=== PATIENT | female | born 1960 | race Caucasian/White ===

== ENCOUNTER 2018-06-02 19:01 | Emergency (ER) | payer OTHER, SELFPAY ==
[2018-06-02 19:06] VITALS: BP 141/85; PULSE 88; RESP 16; TEMP 36.5; O2SAT 97
--- NOTE | 2018-06-02 19:21 | NUR.NOTE ---
Nursing Note: cervical collar applied without difficulty
[2018-06-02] MEDS: Ibuprofen 600 MG TAB PO (19:34)
[2018-06-02] MEDS: Acetaminophen 500 MG TAB 1000 MG PO (19:35)
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
[2018-06-02] MEDS: Cyclobenzaprine 10 MG TAB 20 MG PO (21:14)
== END 2018-06-02 21:14 | disposition home or self-care (01) ==
PROVIDERS: Emergency Provider Nurse Practitioner Family; PCP Nurse Practitioner
DX: S13.4XXA Sprain of ligaments of cervical spine, initial encounter (principal); S29.012A Strain of muscle and tendon of back wall of thorax, initial encounter; V43.52XA Car driver injured in collision with other type car in traffic accident, initial encounter
CPT/HCPCS: 99284; 72040; 72072; L0120; L0172

== ENCOUNTER 2019-01-09 02:38 | Emergency (ER) | payer OTHER, SELFPAY ==
[2019-01-09 02:41] VITALS: BP 125/92; PULSE 95; RESP 16; TEMP 36.8; O2SAT 99
--- NOTE | 2019-01-09 02:44 | ED.GENADUL_ITS ---
Discharge Plan Disposition Patient Disposition: HOME Condition: Good Discharge Details Chief Complaint: EyeProblem Clinical Impression: Abrasion, corneal, Anisocoria Primary Care Provider: Marisa Interiano ED Provider: Trenton Tapia Meds and New Rx's Prescriptions: New erythromycin 5 mg/gram (0.5 %) ointment 0.5 inch OP QID Qty: 3.5 RF: 0 Continued baclofen 10 mg tablet 10 mg PO BID PRN (Reason: muscle spasm) Qty: 90 RF: 3 ibuprofen 800 mg tablet 800 mg PO TID PRN (Reason: fever or pain) Qty: 270 RF: 3 omeprazole 40 mg capsule,delayed release(DR/EC) 40 mg PO BID Qty: 180 RF: 3 rizatriptan 5 mg tablet 5 mg PO PRN Qty: 30 RF: 3 Discharge Instructions Instructions: Corneal Abrasion (ED) Additional Instructions: Do not wear your contact in the right eye. Antibiotic ointment as directed. Follow up with [facility] today. Return to ED for worsening eye pain, change in vision, vomiting, neurologic changes. Referrals: [facility] [Outside] Medical Decision Making Patient presents with complaint of right eye pain and discomfort. She has removed her contact lens but continues to have pain. She does not feel that her uncorrected vision in the right eye is any worse than what she would expect. She has significant anisocoria with the right pupil being much larger than the left. Her eye pain went away completely with tetracaine drops. Fluorescein staining and slit lamp exam does reveal corneal abrasion. Her pupils are reactive though the larger right pupil is more sluggish. There is consensual response. Pupils also constrict to accommodation. She has not used any medications upstairs that would have anticholinergic type effects. She has not given any DuoNeb treatments. She has not used scopolamine patch. She has not had anisocoria before. I do not suspect glaucoma as her eye pain should not have resolved with tetracaine, there is no injection of the conjunctiva or sclera, the pupil is reactive. She is otherwise neurologically intact and there is no diplopia, extraocular muscle dysfunction, ptosis. Does not seem that corneal abrasion would be enough ocular trauma to cause the issue. I think she needs urgent ophthalmologic evaluation but not emergent tonight. Starting her on erythromycin ointment for the corneal abrasion and referring her to [place] in the morning seems appropriate. If she develops worsening eye pain, change in vision, neurologic changes, other concerns return to ED. HPI General Mode of arrival: ambulatory . Date/Time Provider Initiated Documentation: 01/09/19 02:44 . Limitations to Documentation: no limitations . Information obtained by: patient and RN notes reviewed . HPI Narrative: Patient presents to ED with complaint of right eye pain. 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 She put her contacts in when leaving home to come to work. She had no issues during the drive to speak of. Once here at the hospital she developed right eye pain and discomfort. She removed the contact lens but continued to have pain and discomfort. She reports some redness earlier. She has had corneal abrasions before. She has not noticed a significant change in her vision more so than usual if she did not have her contact in. She does have history of headaches and does have one currently though not significantly different than previous. She has no neurological symptoms. She does not have history of glaucoma. She has not been ill otherwise. There is no direct trauma to the eye. Related Data Home Medications Medication Instructions Recorded Confirmed baclofen 10 mg tablet 10 mg PO BID PRN #90 tab 01/01/19 01/09/19 ibuprofen 800 mg tablet 800 mg PO TID PRN #270 tab-cap 01/01/19 01/09/19 omeprazole 40 mg capsule,delayed 40 mg PO BID #180 tab-cap 01/01/19 01/09/19 release rizatriptan 5 mg tablet 5 mg PO PRN #30 tab-cap 01/01/19 01/09/19 erythromycin 0.5 inch OP QID #3.5 gm 01/09/19 Previous Rx's Medication Instructions Recorded baclofen 10 mg tablet 10 mg PO BID PRN #90 tab 01/01/19 ibuprofen 800 mg tablet 800 mg PO TID PRN #270 tab-cap 01/01/19 omeprazole 40 mg capsule,delayed 40 mg PO BID #180 tab-cap 01/01/19 release rizatriptan 5 mg tablet 5 mg PO PRN #30 tab-cap 01/01/19 erythromycin 0.5 inch OP QID #3.5 gm 01/09/19 Allergies Allergy/AdvReac Type Severity Reaction Status Date / Time codeine Allergy Intermediate HIVES Verified 01/09/19 02:45 oxycodone HCl [From Tylox] Allergy Intermediate HIVES Verified 01/09/19 02:45 promethazine HCl Allergy Intermediate BIZARRE Verified 01/09/19 02:45 [From Phenergan] BEHAVIOR erythromycin base AdvReac Intermediate ABDOMINAL Verified 01/09/19 02:45 PAIN, VOMITING topiramate AdvReac Intermediate dizzy Verified 01/09/19 02:45 General LUIS DANIEL: 3 Review of Systems Constitutional Constitutional: Reports headache(s) and Denies weakness Eyes Eyes: Denies change in vision, Denies diplopia, Denies eye discharge, Denies loss of vision, Reports eye pain, Denies seeing flashes and Denies photophobia ENT Ears, Nose, Mouth, and Throat: Denies vertigo, Denies dizziness, Reports headache(s) and Denies disequilibrium Gastrointestinal Gastrointestinal: Denies nausea and Denies vomiting Musculoskeletal Musculoskeletal: Denies abnormal gait Neurologic Neurologic: Denies abnormal speech, Denies abnormal gait, Denies vertigo, Denies dizziness, Reports headache(s), Denies focal weakness, Denies loss of vision, Denies other visual disturbances, Denies disequilibrium and Denies weakness [facility] Medical History Arthritis (Inactive 11/10/16) Back pain (Acute) Obesity (Chronic) Routine gynecological examination (Inactive 03/11/13) Surgical History section X 3 Laryngoscopy, Tumor Excision (02/13/17) [facility] Ligation of fallopian tube Social History Smoking/Tobacco Use Status: Never Alcohol Intake: current Alcohol Intake frequency: holidays/special occasions only Drug use: Never Substance use type: does not use Household members: spouse and children Number of Children: 3 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 Working smoke detector in home: Yes Carbon monox detector in home: Yes Do you feel safe in your relationship?: Yes Exam Const General: cooperative, comfortable and no acute distress Orientation: alert and oriented x3 HENMT Head: normocephalic and atraumatic Face and sinus: normal facial exam Eyes Visual Cannon: normal visual cannon by confrontation Alignment and Position: alignment abnormal Periorbital: periorbital findings normal Eyelids: eyelids normal Conjunctivae: conjunctivae normal Sclera: sclerae normal Cornea: corneas abnormal on the right fluorescein used and abrasion; without dendrites present and without edema Pupils: anisocoria (Pupil react to light and accommodation right pupil slower and less reactive) right pupil size greater than left EOM: EOM intact bilaterally Direct ophthalmoscopy: anterior chamber normal and photophobia not present Neuro General: alert, oriented x3, gait normal, no focal motor deficits and CN's II-XI intact bilaterally Cranial Nerves: EOM intact bilaterally Cognition: normal cognition Speech: speech normal Gait: normal gait Sensory Exam: no sensory deficits noted
[2019-01-09] MEDS: Erythromycin Ophth Oint 3.5 GM TUBE OP (03:27)
== END 2019-01-09 03:35 | disposition home or self-care (01) ==
PROVIDERS: Emergency Provider Emergency Medicine; PCP Nurse Practitioner
DX: S05.01XA Injury of conjunctiva and corneal abrasion without foreign body, right eye, initial encounter (principal); H57.02 Anisocoria; X58.XXXA Exposure to other specified factors, initial encounter
CPT/HCPCS: 99283

== ENCOUNTER 2019-05-26 11:00 | Outpatient (CLI) | payer OTHER, SELFPAY ==
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
--- NOTE | 2019-05-26 11:15 | DI.RAD_ITS ---
EXAM: XR HIP LT COMPLETE AP PELVIS CLINICAL HISTORY: LT HIP PAIN, M25.552 TECHNIQUE: COMPARISON: No exams were available for comparison FINDINGS: Two views were obtained. There are mild degenerative changes of both hips and SI joints with fairly well preserved cartilaginous joint spaces of both hips no other significant bony or soft tissue abnor mality seen. IMPRESSION:
[2019-05-26 11:22] LABS: HCT 39.1 % (36.0-46.0); HGB 12.9 g/dL (12.0-15.5); Mean Corpuscular Hemoglobin 27.3 pg (27.0-33.0); Mean Corpuscular Volume 82.8 fL (80-95); Platelet Count 285 x1000/uL (130-400); RBC 4.72 m/cumm (4.00-5.20); RBC Distribution Width 14.6 % (11.7-14.6); White Blood Cell Count 4.59 k/cumm (4.4-10.8)
[2019-05-26 12:25] LABS: ALT 45 U/L (14-59); AST 25 U/L (15-37); Alkaline Phosphatase 72 U/L (46-116); Anion Gap 9.1 mmol/L (3-11); BUN 14 mg/dL (7-18); Bilirubin, Total 0.4 mg/dL (0.2-1.0); CO2 26.9 mmol/L (21.0-32.0); CREATININE 0.84 mg/dL (0.55-1.02); Calculated LDL 124 mg/dL (<100); Chloride 108 mmol/L (98-107); Cholesterol 194 mg/dL (<200); Glucose 93 mg/dL (74-106); HDL Cholesterol 38 mg/dL (40-60); Potassium 4.5 mmol/L (3.5-5.1); Sodium 144 mmol/L (136-145); Total Protein 6.9 g/dL (6.4-8.2); Triglyceride 160 mg/dL (<150)
[2019-05-26 12:47] LABS: C-Reactive Protein 0.34 mg/dL (0.0-0.3)
[2019-05-26 12:51] LABS: ESR 12 mm/hr (0-30)
[2019-05-27 15:34] LABS: ANA Interpretation Positive (Negative); ANA Titer Pattern 1:160 Speckled; Lyme Ab w Rflx to Lyme Confirm Negative (Negative); Rheumatoid Factor <8.6 IU/mL (<12.0)
== END 2019-05-26 11:20 ==
PROVIDERS: PCP Nurse Practitioner; Visit Provider Nurse Practitioner
DX: R53.83 Other fatigue; G43.009 Migraine without aura, not intractable, without status migrainosus; M15.9 Polyosteoarthritis, unspecified; Z13.220 Encounter for screening for lipoid disorders; M79.671 Pain in right foot; M79.672 Pain in left foot; M25.552 Pain in left hip; M16.0 Bilateral primary osteoarthritis of hip; M77.32 Calcaneal spur, left foot
CPT/HCPCS: 36415; 80053; 80061; 85027; 85652; 73502; 73630; 86038; 86140; 86431; 86618

== ENCOUNTER 2019-09-18 03:01 | Outpatient (CLI) | payer OTHER, SELFPAY ==
--- NOTE | 2019-09-18 11:02 | DI.RAD_ITS ---
EXAM: XR ARTHRITIS SERIES CLINICAL HISTORY: INFLAMMATORY ARTHROPATHY M19.90. TECHNIQUE: 2D digital imaging was performed. COMPARISON: No exams were available for comparison FINDINGS: BONES: The bones are normally mineralized. No erosive or productive changes are seen. JOINTS: The joint spaces are well maintained. No dislocation or subluxation present. SOFT TISSUE: No visible soft tissue swelling or soft tissue calcifications. IMPRESSION: Unremarkable radiographs of the bilateral hands DATA REPOSITORY: RADIATION DOSE DELIVERED:
== END 2019-09-18 03:21 ==
PROVIDERS: PCP Nurse Practitioner; Visit Provider Nurse Practitioner
DX: M19.041 Primary osteoarthritis, right hand (principal); M19.042 Primary osteoarthritis, left hand
CPT/HCPCS: 73120

== ENCOUNTER 2019-09-18 04:26 | Outpatient (CLI) | payer OTHER, SELFPAY ==
[2019-09-18 12:07] LABS: ESR 8 mm/hr (0-30)
[2019-09-18 12:28] LABS: C-Reactive Protein 0.36 mg/dL (0.0-0.3)
[2019-09-19 09:10] LABS: Cyclic Citrullinated Peptide <2.5 U/mL (<5.0)
[2019-09-19 11:32] LABS: HBs Antibody, Quant 10.5 mIU/mL (See Note); Hepatitis B Surface Ab Positive (See Note)
[2019-09-19 11:48] LABS: Hep B Core Antibody Negative (Negative)
[2019-09-19 12:55] LABS: HCV RNA Qualitative Undetected (Undetected)
[2019-09-19 14:43] LABS: Hepatitis B Surface Ag Negative (Negative)
[2019-09-19 14:46] LABS: ANA Interpretation Negative (Negative)
[2019-09-22 14:13] LABS: Parvovirus B19 Ab, IgG Positive (Negative); Parvovirus B19 Ab, IgM Negative (Negative)
[2019-09-23 13:55] LABS: RNP Ab, IgG 7.2 Units (<20.0); SS-A Antibody 3.7 Units (<20.0); Sm (Smith) Ab, IgG 4.4 Units (<20.0)
== END 2019-09-18 04:46 ==
PROVIDERS: PCP Nurse Practitioner; Visit Provider Internal Medicine Rheumatology
DX: M19.90 Unspecified osteoarthritis, unspecified site (principal)
CPT/HCPCS: 36415; 85652; 86200; 86704; 86706; 87340; 87522; 86038; 86140; 86235; 86747

== ENCOUNTER 2020-01-23 04:10 | Outpatient (CLI) | payer OTHER, SELFPAY ==
--- NOTE | 2020-01-23 07:11 | DI.RAD_ITS ---
EXAM: XR KNEE LT 3V AP,LAT,RASHEEDA CLINICAL HISTORY: CHRONIC LT KNEE PAIN,M25.562,G89.29. TECHNIQUE: 2D digital imaging was performed. COMPARISON: No exams were available for comparison FINDINGS: BONES: No acute fracture is present. No bony destructive lesion is seen. Bones are normally mineral ized. JOINTS: The knee is normally aligned. No joint effusion is seen. There is mild periarticular spurring . The joint spaces are well maintained. SOFT TISSUE: Normal. IMPRESSION: Mild degenerative changes. DATA REPOSITORY: RADIATION DOSE DELIVERED:
--- NOTE | 2020-01-23 07:19 | DI.RAD_ITS ---
EXAM: XR ANKLE RT COMPLETE CLINICAL HISTORY: INFLAMMATORY ARTHRITIS, M19.90. TECHNIQUE: 2D digital imaging was performed. COMPARISON: CR XR KNEE RT 3V AP,LAT,RASHEEDA from 01/23/2020 FINDINGS: BONES: No acute fracture is present. No bony destructive lesion is seen. There is a small plantar calcaneal spur. The bones are normally mineralized. JOINTS: The ankle mortise is normally aligned. SOFT TISSUE: Normal. IMPRESSION: Small heel spur, otherwise unremarkable radiographs of the right ankle. DATA REPOSITORY: RADIATION DOSE DELIVERED:
--- NOTE | 2020-01-23 07:19 | DI.RAD_ITS ---
EXAM: XR KNEE RT 3V AP,LAT,RASHEEDA CLINICAL HISTORY: CHRONIC RT KNEE PAIN,M25.561,G89.29. TECHNIQUE: 2D digital imaging was performed. COMPARISON: CR XR KNEE LT 3V AP,LAT,RASHEEDA from 01/23/2020 FINDINGS: BONES: No acute fracture is present. No bony destructive lesion is seen. Bones are normally mineral ized. JOINTS: There is mild spurring from the femoral condyles and tibial plateaus as well as tibial sp ine. No joint effusion is seen. SOFT TISSUE: Normal. IMPRESSION: Mild degenerative changes. DATA REPOSITORY: RADIATION DOSE DELIVERED:
--- NOTE | 2020-01-23 07:27 | DI.RAD_ITS ---
EXAM: XR FOOT RT COMPLETE CLINICAL HISTORY: INFLAMMATORY ARTHRITIS, M19.90. TECHNIQUE: 2D digital imaging was performed. COMPARISON: CR XR FOOT RT COMPLETE from 05/26/2019 FINDINGS: BONES: No acute fracture is present. No bony destructive lesion is seen. The bones are normally mine ralized. There is a tiny plantar calcaneal spur. JOINTS: No dislocation present. The joint spaces are well maintained. There is mild spurring at the talonavicular joint. SOFT TISSUE: Normal. IMPRESSION: Small heel spur and mild degenerative changes, otherwise unremarkable radiographs of the right foot. DATA REPOSITORY: RADIATION DOSE DELIVERED:
--- NOTE | 2020-01-23 07:29 | DI.RAD_ITS ---
EXAM: XR FOOT LT COMPLETE CLINICAL HISTORY: INFLAMMATORY ARTHRITIS, M19.90. TECHNIQUE: 2D digital imaging was performed. COMPARISON: CR XR FOOT RT COMPLETE from 01/23/2020 FINDINGS: BONES: No acute fracture is present. No bony destructive lesion is seen. Bones are normally mineraliz ed. There is a plantar calcaneal spur. There is an ossicle at the dorsal aspect of the navicular. JOINTS: No dislocation present. SOFT TISSUE: Normal. IMPRESSION: Heel spur, otherwise unremarkable radiographs of the left foot. DATA REPOSITORY: RADIATION DOSE DELIVERED:
--- NOTE | 2020-01-23 07:31 | DI.RAD_ITS ---
EXAM: XR ANKLE LT COMPLETE CLINICAL HISTORY: INFLAMMATORY ARTHRITIS,M19.90. TECHNIQUE: 2D digital imaging was performed. COMPARISON: CR XR ANKLE RT COMPLETE from 01/23/2020 FINDINGS: BONES: No acute fracture is present. No bony destructive lesion is seen. There is a plantar calcanea l spur. Small ossicle is seen at the dorsal aspect of the navicular. JOINTS: The ankle mortise is normally aligned. SOFT TISSUE: Normal. IMPRESSION: Heel spur, otherwise unremarkable radiographs of the left ankle. DATA REPOSITORY: RADIATION DOSE DELIVERED:
== END 2020-01-23 04:30 ==
PROVIDERS: PCP Nurse Practitioner
DX: M77.32 Calcaneal spur, left foot (principal); M77.31 Calcaneal spur, right foot; M19.071 Primary osteoarthritis, right ankle and foot; M17.0 Bilateral primary osteoarthritis of knee
CPT/HCPCS: 73562; 73610; 73630

== ENCOUNTER 2020-02-03 03:22 | Outpatient (CLI) | payer OTHER, SELFPAY ==
[2020-02-03 08:29] LABS: C-Reactive Protein 0.29 mg/dL (0.0-0.3)
[2020-02-03 08:54] LABS: ESR 20 mm/hr (0-30)
== END 2020-02-03 03:42 ==
PROVIDERS: PCP Nurse Practitioner; Visit Provider Internal Medicine Rheumatology
DX: R79.82 Elevated C-reactive protein (CRP) (principal)
CPT/HCPCS: 36415; 85652; 86140

== ENCOUNTER 2020-07-29 01:32 | Outpatient (CLI) | payer OTHER, SELFPAY ==
--- NOTE | 2020-07-29 06:25 | DI.MAMMO_ITS ---
EXAM: MG MAMMO SCREENING CLINICAL HISTORY: screening,Z12.39. TECHNIQUE: Bilateral full field digital CC and MLO mammographic images were obtained with 3D tomosyn thesis and utilizing computer aided detection (CAD). COMPARISON: Prior mammogram performed 2017. FINDINGS: There are no CAD designations. There are no new spiculated masses nor malignant appearing microcalcification groups. Two small benign appearing nodules upper outer quadrant right breast are unchanged from 2017 and have the appearance of benign lymph nodes. There is no significant architectural distortion nor skin thickening-retraction. IMPRESSION: No radiographic evidence of malignancy. BI-RADS Category 1 - Negative Breast Density - Category A - Almost entirely fatty Breast density Category C or D implies that the patient has dense breast tissue. Dense breast tissue can make it harder to find cancer on a mammogram. Dense breast tissue is also associated with an incr eased risk of breast cancer. This information about the result of the mammogram report was provided to the patient to raise their awareness. Use this report when you speak with the patient about their risks for breast cancer, which includes their family history. At that time, you may recommend additional screening tests (Ultrasoun d or MRI) as these tests may add significant information. A negative radiographic report should not delay biopsy if a dominant or clinically suspicious mass is present. Up to ten percent of cancers are not identified on mammography. A negative report may reinforce clinical impression. Adenosis and dense breasts may obscure an underlying neoplasm. False positive reports average 6 to 10%. Patient will receive a letter notifying them of these results.
== END 2020-07-29 01:52 ==
PROVIDERS: PCP Nurse Practitioner; Visit Provider Nurse Practitioner
DX: Z12.31 Encounter for screening mammogram for malignant neoplasm of breast (principal)
CPT/HCPCS: 77063; 77067

== ENCOUNTER 2020-08-03 02:38 | Outpatient (CLI) | payer OTHER, SELFPAY ==
[2020-08-03 08:19] LABS: Hemoglobin A1C 5.8 % (<5.7)
[2020-08-03 08:59] LABS: ALT 33 U/L (14-59); AST 24 U/L (15-37); Albumin 3.9 g/dL (3.4-5.0); Alkaline Phosphatase 68 U/L (46-116); Anion Gap 6.3 mmol/L (3-11); BUN 12 mg/dL (7-18); Bilirubin, Total 0.3 mg/dL (0.2-1.0); CO2 28.7 mmol/L (21.0-32.0); CREATININE 0.8 mg/dL (0.55-1.02); Calcium 8.6 mg/dL (8.5-10.1); Calculated LDL 107 mg/dL (<100); Chloride 107 mmol/L (98-107); Cholesterol 164 mg/dL (<200); Glucose 100 mg/dL (74-106); HDL Cholesterol 42 mg/dL (40-60); Potassium 4.2 mmol/L (3.5-5.1); Sodium 142 mmol/L (136-145); Total Protein 6.7 g/dL (6.4-8.2); Triglyceride 77 mg/dL (<150)
== END 2020-08-03 02:39 | disposition home or self-care (01) ==
LOC: LBO 02:38
PROVIDERS: PCP Nurse Practitioner; Visit Provider Nurse Practitioner
DX: E11.9 Type 2 diabetes mellitus without complications (principal); E66.9 Obesity, unspecified; Z13.220 Encounter for screening for lipoid disorders
CPT/HCPCS: 36415; 80053; 80061; 83036

== ENCOUNTER 2021-04-28 01:45 | Emergency (ER) | payer OTHER, SELFPAY ==
--- NOTE | 2021-04-28 01:49 | W.ED.GENAD ---
Discharge Plan Disposition Patient Disposition: HOME Condition: Stable Discharge Details Clinical Impression: Corneal ulcer Primary Care Provider: Marisa Interiano ED Provider: Trenton Tapia [place] Meds and New Rx's Prescriptions: New moxifloxacin 0.5 % drops 1 drp ophthalmic (eye) DIRECTED Qty: 3 RF: 0 Continued celecoxib [Celebrex] 200 mg capsule 200 mg PO BID Qty: 180 RF: 3 nystatin 100,000 unit/gram powder 1 applic topical BID Qty: 60 RF: 6 rizatriptan 5 mg tablet 5 mg PO PRN Qty: 30 RF: 3 colchicine 0.6 mg tablet 0.6 mg PO BID Qty: 60 RF: 3 modafinil [Provigil] 100 mg tablet 100 mg PO DAILY Qty: 90 RF: 0 methocarbamol 500 mg tablet 500 mg PO TID PRN (Reason: muscle spasm) Qty: 90 RF: 3 hydroxychloroquine 200 mg tablet 200 mg PO BID RF: 0 omeprazole 40 mg capsule,delayed release(DR/EC) 40 mg PO BID Qty: 180 RF: 3 albuterol sulfate 90 mcg/actuation HFA aerosol inhaler 2 puff inhalation Q6H PRN (Reason: shortness of breath or wheezing) Qty: 8.5 RF: 3 prednisone 10 mg tablet See Rx Instructions PO DAILY Qty: 20 RF: 0 benzonatate 200 mg capsule 200 mg PO TID PRN (Reason: cough) Qty: 30 RF: 0 Discharge Instructions Additional Instructions: Concern for infection related to contact lens wear. You appear to have two small ulcers. Please use antibiotics drop 1 drop every 1-2 hours until seen by security systems specialist. Do not wear contacts. You should be seen today so call first thing this morning. Return to ED for worse pain, decrease in vision, other concerns. Discharge Data Discharge Date/Time-TO BE ENTERED AT DEPARTURE: 04/28/21 03:02 Medical Decision Making There is no purulent discharge present. There is fluorescein uptake and appears to be 2 small corneal ulcers directly over the right pupil. Right pupil is smaller but does remain reactive. Suspect related to ciliary muscle spasm. She is light sensitive in the right eye. There does appear to be slight white discoloration to the ulcers. I do not appreciate flare on slit-lamp exam. Minimal concern for acute angle glaucoma as pain resolved almost completely with tetracaine eyedrops. Did attempt pressure readings of the eye but obtained multiple error messages with our device. Given use of contact lenses with evidence of corneal defect will start patient on fluoroquinolone eyedrop and have follow-up with security systems specialist today. She is going to return back to work. I will attempt to reach out to [facility] in the morning to get her follow-up today. HPI General Mode of arrival: ambulatory. Date/Time Provider Initiated Documentation: 04/28/21 01:49. Limitations to Documentation: no limitations. Information obtained by: patient and RN notes reviewed. HPI Narrative: Patient presents to ED with right eye pain and redness. She does wear contact lenses. She has also just recovered from COVID. 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 She was fine until getting to work tonight. She removed her lens, continued to have pain and discomfort and came down for evaluation. She describes the pain as worse with light and not so much of a foreign body sensation but pain behind the eye. She denies any visual change. She has no increased pain with movement of the eye. She has some tearing of the eye. She has slight headache but denies any nausea or vomiting. Related Data Home Medications Medication Instructions Recorded Confirmed hydroxychloroquine 200 mg tablet 200 mg PO BID 01/23/20 04/28/21 celecoxib 200 mg capsule 200 mg PO BID #180 cap 07/14/20 04/28/21 nystatin 100,000 unit/gram topical 1 applic TOPICAL BID #60 g 07/14/20 04/28/21 powder rizatriptan 5 mg tablet 5 mg PO PRN #30 tab-cap 07/14/20 04/28/21 colchicine 0.6 mg tablet 0.6 mg PO BID #60 tab 01/03/21 04/28/21 methocarbamol 500 mg tablet 500 mg PO TID PRN #90 tab 03/08/21 04/28/21 modafinil 100 mg tablet 100 mg PO DAILY #90 tab 03/08/21 04/28/21 omeprazole 40 mg capsule,delayed 40 mg PO BID #180 tab-cap 04/11/21 04/28/21 release albuterol sulfate 90 mcg/actuation 2 puff INHALATION Q6H PRN #8.5 g 04/21/21 04/28/21 aerosol inhaler benzonatate 200 mg capsule 200 mg PO TID PRN #30 cap 04/21/21 04/28/21 prednisone 10 mg tablet See Rx Instructions PO DAILY #20 04/21/21 04/28/21 tab-cap moxifloxacin 1 drp OPHTHALMIC (EYE) DIRECTED 04/28/21 #3 ml Previous Rx's Medication Instructions Recorded celecoxib 200 mg capsule 200 mg PO BID #180 cap 07/14/20 nystatin 100,000 unit/gram topical 1 applic TOPICAL BID #60 g 07/14/20 powder rizatriptan 5 mg tablet 5 mg PO PRN #30 tab-cap 07/14/20 colchicine 0.6 mg tablet 0.6 mg PO BID #60 tab 01/03/21 methocarbamol 500 mg tablet 500 mg PO TID PRN #90 tab 03/08/21 modafinil 100 mg tablet 100 mg PO DAILY #90 tab 03/08/21 omeprazole 40 mg capsule,delayed 40 mg PO BID #180 tab-cap 04/11/21 release albuterol sulfate 90 mcg/actuation 2 puff INHALATION Q6H PRN #8.5 g 04/21/21 aerosol inhaler benzonatate 200 mg capsule 200 mg PO TID PRN #30 cap 04/21/21 prednisone 10 mg tablet See Rx Instructions PO DAILY #20 04/21/21 tab-cap moxifloxacin 1 drp OPHTHALMIC (EYE) DIRECTED 04/28/21 #3 ml Allergies Allergy/AdvReac Type Severity Reaction Status Date / Time codeine Allergy Intermediate HIVES Verified 01/03/21 14:53 oxycodone HCl [From Tylox] Allergy Intermediate HIVES Verified 01/03/21 14:53 promethazine HCl Allergy Intermediate BIZARRE Verified 01/03/21 14:53 [From Phenergan] BEHAVIOR erythromycin base AdvReac Intermediate ABDOMINAL Verified 01/03/21 14:53 PAIN, VOMITING topiramate AdvReac Intermediate dizzy Verified 01/03/21 14:53 General LUIS DANIEL: 4 Review of Systems Constitutional Constitutional: Denies fever(s), Reports headache(s) and Denies weakness Eyes Eyes: Denies change in vision, Denies loss of vision, Reports eye pain and Reports photophobia ENT Ears, Nose, Mouth, and Throat: Denies vertigo, Denies dizziness and Reports headache(s) Cardiovascular Cardiovascular: Denies dyspnea Respiratory Respiratory: Denies cough and Denies dyspnea Gastrointestinal Gastrointestinal: Denies nausea and Denies vomiting Musculoskeletal Musculoskeletal: Denies numbness Neurologic Neurologic: Denies vertigo, Denies dizziness, Reports headache(s), Denies localized weakness, Denies loss of vision, Denies numbness, Denies other visual disturbances and Denies weakness PFS All Active Problems (Updated 04/28/21 @ 02:43 by Trenton Tapia MD) Corneal ulcer (Acute) Routine gynecological examination (Acute 03/11/13) Shift work sleep disorder (Acute) Wheeze (Acute) Cough (Acute) Fungal rash of torso (Acute) Screening for cholesterol level (Acute) Inflammatory arthritis (Acute) 04/23/19 [facility] Rheumatology Fatigue (Acute) Left hip pain (Acute) Bilateral foot pain (Acute) Obesity (Chronic) Back pain (Acute) GERD (gastroesophageal reflux disease) (Chronic) Mgrn wo aura wo intrc mgr (Acute 08/02/11) Vocal cord polyp (Acute 01/24/17) Insomnia (Acute 01/24/17) Generalized osteoarthrosis (Acute 08/02/11) Allergic rhinitis, unspecified (Acute 08/02/11) Medical History Arthritis (11/10/16) Surgical History section X 3 Laryngoscopy, Tumor Excision (02/13/17) [facility] [place]igation of fallopian tube Family History Mother Heart disease Father Essential hypertension Hyperlipidemia Lung cancer Thyroid disorder Grandfather Diabetes Grandfather Diabetes Grandmother Diabetes Grandmother Diabetes Daughter RA (rheumatoid arthritis) Social History Smoking/Tobacco Use Status: Never Smoking risk assessment performed?: Yes Alcohol Intake: current Alcohol Intake frequency: holidays/special occasions only Drug use: Never Substance use type: does not use Household members: spouse and children Number of Children: 3 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 Working smoke detector in home: Yes Carbon monox detector in home: Yes Do you feel safe at home: Yes Do you feel safe in your relationship?: Yes Exam Const General: cooperative and no acute distress Orientation: alert and oriented x3 HENMT Head: normocephalic and atraumatic Face and sinus: normal facial exam Eyes Periorbital: periorbital findings normal Eyelids: eyelids normal Conjunctivae: conjunctival abnormality right conjunctival injection; without discharge Sclera: scleral abnormality right scleral injection Cornea: corneas abnormal on the right fluorescein used and ulercation (2 small ulcers over pupil) within the central cornea Pupils: anisocoria left pupil size greater than right, not fixed, regular, reactive and other (right pupil smaller than left but is reacitve and not fixed) EOM: EOM intact bilaterally Other: Pain with light shined into right eye but not left eye. Neck Neck: trachea midline and supple Resp Effort & Inspection: normal respiratory effort Neuro General: patient alert, patient oriented x3 and no focal motor deficits Cranial Nerves: CN's II-XI intact bilaterally Cognition: normal cognition Speech: speech normal Gait: normal gait Sensory Exam: no sensory deficits noted
[2021-04-28 01:50] VITALS: BP 149/90; PULSE 85; RESP 18; TEMP 36.4; O2SAT 97
[2021-04-28 02:08] VITALS: BP 109/96
[2021-04-28] MEDS: Fluorescein STRIPS 100/BOX 1 MG (02:31)
[2021-04-28] MEDS: Tetracaine 0.5% 4 ML BTL (02:31)
== END 2021-04-28 03:02 | disposition home or self-care (01) ==
PROVIDERS: Emergency Provider Emergency Medicine; PCP Nurse Practitioner
DX: H16.001 Unspecified corneal ulcer, right eye (principal)
CPT/HCPCS: 99283

== ENCOUNTER 2021-10-06 12:38 | Outpatient (REF) | payer OTHER, SELFPAY ==
--- NOTE | 2021-10-06 08:15 | PAPFT_PTH ---
PATIENT: Donya Whiteside LOC: [facility] U#:[id number] AGE/SX: 61/F ROOM: RE10/06/[address]: SARWAT Montoya : 1960 BED: DIS: 10/06/2021 SPEC #: [id number] RECD: 10/06/21 12:41 STATUS: FRANCISCO REQ #: [id number] RANDEE: 10/06/21 08:[address]: Brenda Mercado DEPT: [facility] Cytology RECD BY: Marita Hamilton ENTERED: 10/06/21 12:42 SP TYPE: PAPFT OTHR DR: Unknown,Unknown Tissues: 1 - CX/ENDOCX FOR PAP SMEARS Procedures: PAP THIN PREP/UVM Screening HPV DNA PROBE Comments: [id number]
--- OUTSIDE RECORDS SUMMARY | 2021-10-06 12:41 | XMS_ITS | Encounter Summary ---
:1960 Author Organization [facility] [place] [address] Care Team Providers Name Role Phone Marisa Interiano AKI Primary Care Provider Encounter Details Date Type Department Care Team Description 09/02/2020 Telephone Rheumatology at [facility] [place] [address] Social History Tobacco Use Types Packs/Day Years Used Date Never Smoker Smokeless Tobacco: Never Used Alcohol Use Standard Drinks/Week Comments Yes 0 (1 standard drink = 0.6 oz pure alcoho l) occasionally Alcohol Habits Answer Date Recorded How often do you have a drink containing alcohol? Not asked How many drinks containing alcohol do you have on a Not aske d typical day when you are drinking? How often do you have six or more drinks on one occasion? No t asked Comment: occasionally 02/13/2017 Sex Assigned at Date Recorded Not on file documented as of this encounter Miscellaneous Notes Telephone Encounter - Vika Max - 09/02/2020 4:22 PM EDT LM to schedule two month follow up with Dr Anders documented in this encounter Plan of Treatment Upcoming Encounters Date Type Specialty Care Team Description 10/19/2021 Office Visit Rheumatology Cornelia Hart, BOILER TESTER [facility] [address] [place], [place] [address] (Wo rk) documented as of this encounter Visit Diagnoses Not on filedocumented in this encounter Care Teams Geological Technical Officer Relationship Specialty Start Date End Date Marisa Interiano APRN PCP - General Internal Medicine 01/25/[address] [place] [address] documented as of this encounter
--- OUTSIDE RECORDS SUMMARY | 2021-10-06 12:41 | XMS_ITS | Clinical Summary ---
:1960 Author Organization [facility] [place] [address] Care Team Providers Name Role Phone Marisa Inetriano Sherron PRABHAKAR Primary Care Provider Allergies Active Allergy Reactions Severity Noted Date Comments Codeine Phosphate CIS - Naus ea/Vomiting Oxycodone Nausea And Vomiting 02/13/2017 Promethazine Hcl CIS - agita tion, confusion Medications Medication Sig Dispensed Refills Start Date End Date Status rizatriptan (MAXALT) 5 0 10/28/2008 Active mg tablet traZODone (DESYREL) 50 Take 50 mg by 0 01/25/2017 Active mg Tablet mouth as needed. omeprazole (PRILOSEC) 40 Take 40 mg by 0 01/22/2017 Active mg Capsule, Delayed mouth 2 times Release(E.C.) daily. OMEGA-3S/DHA/EPA/FISH Take 1 tablet by 0 Active OIL (OMEGA 3 ORAL) mouth daily. CALCIUM Take 2 tablets 0 Activ e CARBONATE/VITAMIN D3 by mouth daily. (VITAMIN D-3 ORAL) baclofen (Lioresal) 10 Take 1 tablet by 90 tablet 3 04/30/2020 Active mg Tablet mouth as needed. colchicine (Colcrys) 0.6 Take 1 tablet by 60 tablet 3 04/28/20 21 Active mg Tablet mouth 2 times daily. celecoxib (CeleBREX) 200 Take 1 capsule 60 capsule 3 1 Active mg Capsule by mouth 2 times daily. hydrOXYchloroQUINE Take 1 tablet by 60 tablet 3 09/01/2020 Active (Plaquenil) 200 mg mouth 2 times TabletIndications: daily. rheumatoid arthritis Indications: rheumatoid arthritis Active Problems No known active problems Family History Medical History Relation Comments Cancer Father Cerebrovascular Accident Father Hypertension Father Hypertension Mother Relation Status Comments Father Mother Social History Tobacco Use Types Packs/Day Years [...] Assigned at Date Recorded Not on file Last Filed Vital Signs Vital Sign Reading Time Taken Comments Blood Pressure 133/89 07/28/2020 4:05 PM EDT Pulse 100 07/28/2020 4:05 PM EDT Temperature 36.5 ??C (97.7 ??F) 07/28/2020 4:05 PM EDT Respiratory Rate 18 04/30/2020 2:10 PM EST Oxygen Saturation 98% 07/28/2020 4:05 PM EDT Inhaled Oxygen Concentration - - Weight 95.7 kg (211 lb) 07/28/2020 4:05 PM EDT Height 157.5 cm (5' 2) 07/28/2020 4:05 PM EDT Body Mass Index 38.59 07/28/2020 4:05 PM EDT Plan of Treatment Upcoming Encounters Date Type Specialty Care Team Description 10/19/2021 Office Visit Rheumatology Cornelia Hart, STAMP ANALYST [facility] R[facility]AT[facility] [place], [place] [address] (Wo rk) Health Maintenance Due Date Last Done Comments Covid-19 Vaccine (#1) 1967 HIV screen 1980 Hepatitis C Screening 1980 Lipid Screening 1980 Tdap adult 1981 Tetanus vaccine 1981 HPV test 1992 PAP Smear 1992 Breast Cancer Share Decision Needed 2002 Diabetes Screening (HgbA1C or Glucose) 2002 Colonoscopy 2007 Breast Cancer screening 2012 Zoster vaccine (1 of 2) 2012 Advance Directive 2017 Influenza (Flu) vaccine (1 of 1 - Influenza standard 12/01/2021 series) Insurance Payer Benefit Plan / Subscriber ID Effective Dates Phone Addre ss Type Group HEALTH PLANS HEALTH PLANS [id number] 2014-Agustina [phone] [id number] [employer] [address] [place] [address] [phone] (Work) Care Teams Sanitation Inspector Relationship Specialty Start Date End Date Marisa Interiano, STAMP ANALYST PCP - General Internal Medicine 01/25/[address] [place], [place] [id number]
--- OUTSIDE RECORDS SUMMARY | 2021-10-06 12:41 | XMS_ITS | Encounter Summary ---
:1960 Author Organization [facility] [place] [address] Care Team Providers Name Role Phone Marisa Interiano AKI Primary Care Provider Encounter Details Date Type Department Care Team Description 09/01/2020 TH Visit Rheumatology at [facility] Kameron Anders Chondrocalcinosis (Primary D x); (TeleHealth) [facility] J, DO Inflammatory arthritis; Drive [facility] superintendent terminal (current) use of n on-steroidal anti-inflammatories (nsaid) [place], [place] [address] RHEUMATOLOGY [phone] [place] [address] Social History Tobacco Use Types Packs/Day Years [...] on file documented as of this encounter Progress Notes Kameron Anders, - 09/01/2020 4:00 PM EDT Rheumatology Outpatient Progress Note - Telemedicine Interval History: Donya Whiteside is a 60 y.o. female who participated in this telephone visit for f/u of inflammatory arthritis and + PRAMOD 1:160 with signs of chondrocalcinosis in L wrist on MSK U/S Last seen : July 2020 - Colchicine added CC: none HPI: Donya reports feeling better since adding colchicine. She has less pain in her feet, and is able to sleep better because of this. Hand pain has reduced, stiffness has reduced. No painful swollen joints. Tolerating colchicine BID wtihout diarrhea. On celebrex 200mg BID and BP has been stable. Also taking plaquenil BID. ROS: All systems reviewed are negative except as in HPI Current Outpatient Medications Medication Sig Dispense Refill ??? colchicine (Colcrys) 0.6 mg Tablet Take 1 tablet by mouth 2 times daily. 60 tablet 3 ??? celecoxib (CeleBREX) 200 mg Capsule Take 1 capsule by mouth 2 times daily. 60 capsule 3 ??? baclofen (Lioresal) 10 mg Tablet Take 1 tablet by mouth as needed. 90 tablet 3 ??? hydrOXYchloroQUINE (Plaquenil) 200 mg Tablet Take 1 tablet by mouth 2 times daily. Indications: rheumatoid arthritis 60 tablet 3 ??? traZODone (DESYREL) 50 mg Tablet Take 50 mg by mouth as needed. ??? omeprazole (PRILOSEC) 40 mg Capsule, Delayed Release(E.C.) Take 40 mg by mouth 2 times daily. ??? OMEGA-3S/DHA/EPA/FISH OIL (OMEGA 3 ORAL) Take 1 tablet by mouth daily. ??? CALCIUM CARBONATE/VITAMIN D3 (VITAMIN D-3 ORAL) Take 2 tablets by mouth daily. ??? rizatriptan (MAXALT) 5 mg tablet No current facility-administered medications for this visit. Allergies Allergen Reactions ??? Codeine Phosphate CIS - Nausea/Vomiting ??? Oxycodone Nausea And Vomiting ??? Promethazine Hcl CIS - agitation, confusion Physical Exam: Vitals and exam deferred - telephone visit Labs 05/2019 at [facility]: Unremarkable hemogram, CMP Lipids: total 194; triglycerides 160; HDL 38; LDL 124 ESR 12 CRP 0.34 mg/dL RF negative PRAMOD positive 1:160 speckled (run at [facility] by indirect immunofluorescence) Lyme Ab negative 09/2019 - ZENA panel negative - Parvovirus IgG + IgM - - CCP neg - PRAMOD negative, ZENA negative - ESR 8 CRP 0.36mg/dL (H) --> repeat both ESR and CRP normal (02/2020) - Hepatitis BcAb, HBsAg negative; HBsAb + - HCV neg Studies 09/2019 X0R hands - unremarkable - per my read there is some soft tissue swelling in the L 3rd PIPregion - otherwise no JSN, erosions, or chondrocalcinosis. 05/2019 X-rays at [facility] (per radiology report, images not viewed): ?? Hips/pelvis -- mild degenerative changes of both hips and SI joints with fairly well preserved joint spaces ?? Left foot -- small osteophyte at side of attachment of plantar fascia on the calcaneus; mild degenerative changes at the cuneiform metatarsal joint and IP joints of foot. - XR knees unremarkable no e/o CPPD per my read - XR ankles, feet unremarkable, no e/o inflammatory arthritis per my read Assessment: Donya Whiteside is a 60 y.o. female who returns in follow up of questionable inflammatory arthritisaffecting her hands, wrists, feet and ankles with a negative RF/CCP, positive PRAMOD and no other serologic or clinical signs of a connective tissue disease, in the setting of a family history of JAKE in her daughter. Previous MSK US showed speckled hyperechogenicity in the triangular fibrocartilage complex of the left wrist raising the suspicion for CPPD, which can mimic seronegative RA. Donya does not have symptoms of a spondyloarthropathy such as psoriatic arthritis. She also does not have signs of RA at this time. Symptoms improving after colchicine added to celebrex and plaquenil. Blood pressure is stable, will continue to monitor on celebrex. Plan: - Continue Colchicine 0.6mg BID - Continue Celebrex 200mg BID - would avoid 400mg dose as Donya has had increase in BP since being on Celebrex - Continue HCQ 200mg BID - she will update her eye doctor that she is on plaquenil (started 01/2020) RTC 2 mo - in person I spent 30 minutes caring for the patient today Kameron Anders DO [facility] Rheumatology documented in this encounter Plan of Treatment Upcoming Encounters Date Type Specialty Care Team Description 10/19/2021 Office Visit Rheumatology Cornelia Hart APRN [facility] RHEUMATOLOGY [place], [place] [address] (Wo rk) documented as of this encounter Visit Diagnoses Diagnosis Chondrocalcinosis - Primary Other disorder of calcium metabolism Inflammatory arthritis Unspecified inflammatory polyarthropathy superintendent terminal (current) use of non-steroidal anti-inflammatories (nsaid) documented in this encounter Care Teams Pmp Project Manager Relationship Specialty Start Date End Date Marisa Interiano APRN PCP - General Internal Medicine 01/25/[address] [place] [address] documented as of this encounter
--- OUTSIDE RECORDS SUMMARY | 2021-10-06 12:41 | XMS_ITS | Encounter Summary ---
:1960 Author Organization [facility] Address [address] [place] [address] Care Team Providers Name Role Phone Marisa Interiano Sherron PRABHAKAR Primary Care Provider Reason for Visit Reason Comments Follow-up Encounter Details Date Type Department Care Team Description 04/30/2020 Office Visit Rhe[place]ology at [facility] Kameron Anders, Left hand pain; [facility] Right hand pain; [facility] Encounter for monitoring [place] [address] CENTER [phone] RHEUMATOLOGY [place], [place] [address] Social History Tobacco Use Types Packs/Day Years [...] on file documented as of this encounter Last Filed Vital Signs Vital Sign Reading Time Taken Comments Blood Pressure 127/81 04/30/2020 2:10 PM EST Pulse 88 04/30/2020 2:10 PM EST Temperature 36.7 ??C (98 ??F) 04/30/2020 2:10 PM EST Respiratory Rate 18 04/30/2020 2:10 PM EST Oxygen Saturation 100% 04/30/2020 2:10 PM EST Inhaled Oxygen Concentration - - Weight 93 kg (205 lb) 04/30/2020 2:10 PM EST reported Height 157.5 cm (5' 2) 04/30/2020 2:10 PM EST Body Mass Index 37.49 04/30/2020 2:10 PM EST documented in this encounter Progress Notes Kameron Anders, DO - 04/30/2020 2:15 PM EST Rheumatology Outpatient Progress Note Interval History: Donya Whiteside is a 60 y.o. female returns today for f/u of inflammatory arthritis and + PRAMOD 1:160 CC: Hand pain HPI: Donya reports persistent hand pain despite taking meloxicam 15mg daily. She is taking 1 tabletof 800mg motrin in the evenings due to persistent pain. Mornings are worse for her symptoms and alsoincreased physical activity with her hands makes the pain worse. Tylenol does not help. ROS: All systems reviewed are negative except as in HPI Current Outpatient Medications Medication Sig Dispense Refill ??? hydrOXYchloroQUINE (Plaquenil) 200 mg Tablet Take 1 tablet by mouth 2 times daily. Indications: rheumatoid arthritis 60 tablet 3 ??? meloxicam (MOBIC) 15 mg Tablet Take 1 tablet by mouth daily. 90 tablet 3 ??? baclofen (Lioresal) 10 mg Tablet Take 10 mg by mouth as needed. ??? predniSONE (Deltasone) 10 mg Tablet Take 1 tablet by mouth daily. Do not stop abruptly. 30 tablet 0 ??? traZODone (DESYREL) 50 mg Tablet Take 50 mg by mouth as needed. ??? omeprazole (PRILOSEC) 40 mg Capsule, Delayed Release(E.C.) Take 40 mg by mouth daily. ??? OMEGA-3S/DHA/EPA/FISH OIL (OMEGA 3 ORAL) Take 1 tablet by mouth daily. ??? CALCIUM CARBONATE/VITAMIN D3 (VITAMIN D-3 ORAL) Take 2 tablets by mouth daily. ??? rizatriptan (MAXALT) 5 mg tablet ??? ibuprofen (MOTRIN) 800 mg tablet No current facility-administered medications for this visit. Allergies Allergen Reactions ??? Codeine Phosphate CIS - Nausea/Vomiting ??? Oxycodone Nausea And Vomiting ??? Promethazine Hcl CIS - agitation, confusion Physical Exam: BP 127/81 (BP Location (NBP): Left arm, Patient Position: Sitting, BP Cuff Sizes: Adult (25-34 cm)) Pulse 88 Temp 36.7 ??C (98 ??F) (Temporal) Resp 18 Ht 157.5 cm (5' 2) Wt 93 kg (205 lb) Comment: reported SpO2 100% BMI 37.49 kg/m?? General NAD Eyes: EOMI no scleral icterus or conjunctival injection Neuro AAOX3 non focal Extremities no edema, cyanosis or clubbing MSK: Elbows:FROM, (-)pain, (-)nodules Wrists: FROM no synovitis; TTP of left wrist Hands: Mild chronic synovitis and TTP of bilateral 2nd and 3rdMCPs; no synovitis of PIP or DIP joints Knees: (-)effusions, non-tender FROM Ankles: FROM bilaterally no effusion or synovitis Feet: MTP compression tenderness bilaterally but no synovitis or effusions Labs 05/2019 at [facility]: Unremarkable hemogram, CMP Lipids: total 194; triglycerides 160; HDL 38; LDL 124 ESR 12 CRP 0.34 mg/dL RF negative PRAMOD positive 1:160 speckled (run at [facility] by indirect immunofluorescence) Lyme Ab negative 09/2019 [...] JSN, erosions, or chondrocalcinosis. 05/2019 X-rays at [facility] in [facility] (per radiology report, images not [...] have signs of RA at this time. We will continue to use NSIADs and will change meloxicam to celebrex. She has a history of gastritison naproxen. Plan: - Continue HCQ 200mg BID - she will update her eye doctor that she is on plaquenil (started 01/2020) - Change meloxicam to celebrex 100mg BID - may increase to 200mg BID if no improvement after 2 weeks. RTC 3 mo or sooner if needed I spent 30 minutes with the patient and 20 minutes were spent in patient education, counseling and discussion of the plan above. Kameron Anders DO [facility] Rheumatology documented in this encounter Plan of Treatment Upcoming Encounters Date Type Specialty Care Team Description 10/19/2021 Office Visit Rheumatology Cornelia Hart APRN [facility] [address] [place], [place] [address] (Wo rk) documented as of this encounter Visit Diagnoses Diagnosis Left hand pain Pain in limb Right hand pain Pain in limb Encounter for monitoring chronic NSAID t herapy Encounter for therapeutic drug monitorin g documented in this encounter Care Teams Tafe Teacher Relationship Specialty Start Date End Date Marisa Interiano APRN PCP - General Internal Medicine 01/25/[address] [place] [address] documented as of this encounter
--- OUTSIDE RECORDS SUMMARY | 2021-10-06 12:41 | XMS_ITS | Encounter Summary ---
:1960 Author Organization [facility] [place] [address] Care Team Providers Name Role Phone Marisa Inteirano ENGINEER SECOND ASSISTANT Primary Care Provider Encounter Details Date Type Department Care Team Description 01/23/2020 Ancillary Procedure Radiology Library at Marisa Interiano, [facility] ENGINEER SECOND ASSISTANT [facility] [address] [place] [phone] (Wo rk) Social History Tobacco Use Types Packs/Day Years [...] on file documented as of this encounter Plan of Treatment Upcoming Encounters Date Type Specialty Care Team Description 10/19/2021 Office Visit Rheumatology Cornelia Hart APRN [facility] [address] [place], [place] [address] (Wo rk) documented as of this encounter Procedures Procedure Name Priority Date/Time Associated Diagnosis Comme nts FILM LIBRARY Routine 01/23/2020 1:47 PM Results f or this STORAGE ONLY DX EDT procedure ar e in FOOT the results section. documented in this encounter Results Film Library- Storage Only DX Foot (01/23/2020 1:47 PM EDT) Specimen (Source) Anatomical Location Collection Method / Collectio n Time Received Time / Laterality Volume Narrative RAD - 01/23/2020 1:47 PM EDT This exam is auto-finalizing. It's purpo se is for storage only. Marisa Interiano APRN IMG FILM LIBRARY ORDERABLES Performing Organization Address City/State/ZIP Code Phon e Number [place], [place] documented in this encounter Visit Diagnoses Not on filedocumented in this encounter Care Teams Site Supervisor Relationship Specialty Start Date End Date Marisa Interiano APRN PCP - General Internal Medicine 01/25/17 [address] [place] [address] documented as of this encounter
--- OUTSIDE RECORDS SUMMARY | 2021-10-06 12:42 | XMS_ITS | Encounter Summary ---
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 Procedures PRO LARYNGOSCOPY, DIRCT, OP SCOP, EXC TUMR LARYNGOSCOPY, DIRECT, EXCISION OF TUMOR, CORD STRIPPING, MICRO (WRVU 4.52) Referral ID Status Reason Start Date Expiration Date Visits Requ ested Visits Authorized [id number] 1 1 Encounter Details Date Type Department Care Team Description 02/13/2017 Anesthesia Event Main Operating Room Morena Villavicencio MD [facility] [place] [address] [facility] Elvia Singleton MD [facility] [address] [facility] [place] [address] Anesthesia Record Procedure Summary Procedure Name Responsible Anesthesia Start Anesthesia Stop Time Anesthesiologist Time LARYNGOSCOPY, Morena Le MD 02/13/17 0734 02/13/17 084 4 DIRECT, EXCISION OF TUMOR, CORD STRIPPING, MICRO (WRVU 4.52) (N/A Throat) Events Date Time Event Comment 02/13/2017 0705 0734 Start 0736 AN Verify 0736 An Start Data 0744 An Induction 0744 Quick Note Intermittent jet ventilation throughout to maintain sat >90 %, noted good chest excursion 0746 Anesthesia Ready 0746 Quick Note No antibiotics i ndicated 0749 Quick Note Suspended DL by ENT 0844 an stop data 0844 Recovery or ICU Handoff Patient care was transferred to the destination unit staff after review of the patient's medica l history, current anesthetic/surgi fer status and plan, according to the Provider Handoff Checklist. 0844 Stop Name Total Midazolam 2 mg Propofol 40 mg Ondansetron 8 mg Dexamethasone 8 mg REMIfentanil INF 0.94 mg Propofol INF 554.6 mg Remifentanil 50 mcg Lactated Ringers 800 mL Agents Name O2 Air N2O Sevoflurane (et) Blood No blood administrations on file. Lines, Drains, and Airways Type Details Placement Removal PIV 02/13/17; 0642; median vein 02/13/17 0642 by Jasen ryan, 07/16/17 0921 by [facility], (underside of arm), right; Radha Leggett RN User [id number] catheter system; 20 gauge, 1 in length; [place], FILIBERTO; distraction, intradermal injection, tolerated well, appears comfortable; 07/16/17 (Auto removal via utility); 0921 (Auto removal via utility) Incision 02/13/17; 0752; throat; 02/13/17 0752 by Audelia, 02/13/17 1112 by Juma, 02/13/17; 1112 FILIBERTO Pepper RN documented in this encounter Social History Tobacco Use Types Packs/Day Years [...] on file documented as of this encounter OR Notes Anesthesia Postprocedure Evaluation - Elvia Singleton MD - 02/13/2017 8:50 AM EST [facility] Department of Anesthesiology Post-procedure Note Patient: Donya Whiteside Procedure Summary Date Anesthesia Start Anesthesia Stop Room / Location 02/13/[address] [place] [address] OR [facility] MAIN OR Procedure Diagnosis Surgeon Responsible Provider LARYNGOSCOPY, DIRECT, EXCISION OF TUMOR, CORD STRIPPING, MICRO (WRVU 4.52) (N/A Throat) Recurrent respiratory papillomatosis (laryngeal lseion) Renny Arita MD Foreman, Lily A, MD All Anesthesia Providers: Anesthesiologist: Morena Le MD Water Supervisor: Elvia Singleton MD Most Recent Vitals: 02/13/17 0850 BP: (!) 152/94 Pulse: Resp: Temp: SpO2: 97% Pain Patient Location: PACU/[facility] Level of Consciousness: Awake and Alert Pain Management: Satisfactory Analgesia PONV: None Cardiovascular Status: At Baseline and Hemodynamically Stable Respiratory Status: At Baseline and Room Air Postoperative Fluid Status: Intravascular EUvolemia Possible Anesthetic Complications: NONE apparent at time of evaluation Final Primary Anesthesia Type: General (The anesthetic type performed was the same as planned.) Comments: Elvia Singleton MD Anesthesia Preprocedure Evaluation - Morena Le MD - 02/12/2017 4:27 PM EST Pre-Anesthesia Evaluation for: Donya Whiteside a 56 y.o. female. Procedure(s): LARYNGOSCOPY, DIRECT, EXCISION OF TUMOR, CORD STRIPPING, MICRO (WRVU 4.52) There are no active problems to display for this patient. Past Medical History: Diagnosis Date ??? Allergic state ??? Asthma ??? Change in voice ??? Difficulty swallowing ??? Dry mouth ??? GERD (gastroesophageal reflux disease) ??? Migraines Past Surgical History: Procedure Laterality Date ??? SECTION ??? THROAT SURGERY polyp removal in throat x 4 ??? TONSILLECTOMY AND ADENOIDECTOMY Social History Substance Use Topics ??? Smoking status: Never Smoker ??? Smokeless tobacco: Never Used ??? Alcohol use Not on file History Drug Use Not on file Allergies Allergen Reactions ??? Codeine Phosphate CIS - Nausea/Vomiting ??? Oxycodone-Acetaminophen CIS - headache, nausea ??? Promethazine Hcl CIS - agitation, confusion Medications: MAR and/or home medications have been reviewed. Physical Exam: There were no vitals filed for this visit.asthma, rec There is no height or weight on file to calculate BMI. Airway Assessment: Mallampati: II TM distance: <3 FB Neck ROM: full Cardiovascular Assessment: Rhythm: regular Pulmonary Assessment: breath sounds clear to auscultation Dental Assessment: - normal exam Misc Assessment: IV access: Peripheral line Anesthesia Plan: ASA 2 general, with a(n) intravenous induction This plan and note is formulated based on pre-operative chart review, the patient has not been examined. Anesthetic plan remains preliminary. Donya Whiteside is a 56 y.o. 94kg female non-smoker presenting for Procedure(s): LARYNGOSCOPY, DIRECT, EXCISION OF TUMOR, CORD STRIPPING, MICRO (WRVU 4.52) with Dr. Arita. The patient's past medical history, past surgical history, medications, and allergies were reviewed and notable for asthma, recurrent vocal cord papilloma, voice hoarseness, GERD, migraines. Patient's documented history was negative for seizures, CVA, cardiac disease, lung dx, hepatic/renaldisease or coagulopathy. Denies GERD. Denies ZELDA. There is no evidence of any recent URI symptoms, fevers/chills, or other signs of infection. Has been afebrile last 24 hours. Prior anesthetic history: No prior anesthetic documentation. Denies FH of problems with anesthesia. No chart history of family history of malignant hyperthermia. Exercise tolerance: Canclimb two flights of stairs and walk two blocks without SOB; METS >4 NPO Status: Reviewed and appropriate Relevant Meds:Omeprazole Labs: No results for input(s): WBC, HGB, HCT, PLATELET in the last 7068 hours. No results for input(s): NA, K, CL, CO2, BUN, CREATININE in the last 7068 hours. No results for input(s): AST, ALT, ALKPHOS, BILITOT, BILIDIR in the last 7068 hours. No results for input(s): PT, INR, PTT in the last 168 hours. Type and Screen: No results found for: ABORH Anesthetic Plan: GA with ETT Standard ASA monitoring Adequate IV access Consent to be obtained prior to procedure Addendum: Endorses >4METs NPO Denies recent URI, fever, chills, sz, stroke, cardiopulmonary issues No hx of anesthetic complications except PONV endorses motion sickness Can lay flat without changes in breathing All prior lesions have been on vocal cords only PLAN: GA with jet ventilation and suspended laryngoscopy, scopolamine patch Region - Other Informed Consent: Anesthetic plan and risks discussed with patient. Use of blood products discussed with patient who. Plan discussed with resident. PAT Staff Note documented in this encounter Plan of Treatment Upcoming Encounters Date Type Specialty Care Team Description 10/19/2021 Office Visit Rheumatology Cornelia Hart, POOL NURSE [facility] RHEUMATOLOGY [place], [place] [address] (Wo rk) documented as of this encounter Visit Diagnoses Not on filedocumented in this encounter Administered Medications Inactive Administered Medications - up to 3 most recent administrations Medication Order MAR Action Action Date Dose Rate Site dexamethasone (DECADRON) injection Given 02/13/2017 7:46 AM EST 8 mg PRN, Starting on Sun02/13/17 at 0746, Until Sun02/13/17 at 0844, Anesthesia Intra-op, Routine lactated Ringers infusion New Bag 02/13/2017 7:34 AM EST CONTINUOUS PRN, Starting on Sun02/13/17 at 0734, Until Sun02/13/17 at 0844, Anesthesia Intra-op midazolam (PF) (VERSED) 1 mg/mL multi-dose Given 02/13/2017 7:34 AM EST 2 mg injection PRN, Starting on Sun02/13/17 at 0734, Until Sun02/13/17 at 1024, Sleep, Anesthesia Intra-op, Routine ondansetron (ZOFRAN) injection Given 02/13/2017 8:13 AM EST 8 mg PRN, Starting on Sun02/13/17 at 0813, Until Sun02/13/17 at 0844, Nausea, Anesthesia Intra-op, Routine propofol (DIPRIVAN) 10 mg/mL bolus injection Given 7 8:07 AM EST 20 mg (Anesthesia) PRN, Starting on Sun02/13/17 at 0759, Until Sun02/13/17 at 0844, Anesthesia Intra-op Given 02/13/2017 7:59 AM EST 20 mg propofol (DIPRIVAN) Rate/Dose 02/13/2017 8:16 100 mcg/kg/min 56.4 mL /hr infusion Change AM EST CONTINUOUS PRN, Starting on Sun02/13/17 at 0746, Until Sun02/13/17 at 0844, Anesthesia Intra-op, Routine New Bag 02/13/2017 7:46 AM EST 150 mcg/kg/min 84.6 mL/hr remifentanil (ULTIVA) 0.02 mg/mL New Bag 02/13/2017 7:46 0.2 m cg/kg/min 56.4 mL/hr IV infusion (ANESTHESIA) AM EST CONTINUOUS PRN, Starting on Sun02/13/17 at 0746, Until Sun02/13/17 at 0844, Anesthesia Intra-op remifentanil (ULTIVA) injection Given 02/13/2017 8:06 AM EST 25 mcg PRN, Starting on Sun02/13/17 at 0759, Until Sun02/13/17 at 0844, Anesthesia Intra-op, Routine Given 02/13/2017 7:59 AM EST 25 mcg documented in this encounter Care Teams Designer/Writer Relationship Specialty Start Date End Date Marisa Interiano APRN PCP - General Internal Medicine 01/25/17 [address] [place] [address] documented as of this encounter
--- OUTSIDE RECORDS SUMMARY | 2021-10-06 12:42 | XMS_ITS | Encounter Summary ---
:1960 Author Organization [facility] [place] [address] Care Team Providers Name Role Phone Marisa Interiano APRN Primary Care Provider Encounter Details Date Type Department Care Team Description 10/02/2019 Telephone Rheumatology at [facility] Brit Arredondo [place] [facility] [place] [address] [place] [id number] [phone] (Wo rk) Social History Tobacco Use Types [...] this encounter Miscellaneous Notes Telephone Encounter - Brit Arredondo APRN - 10/02/2019 7:44 AM EDT Advised that lab results show elevated CRP but all else is normal. Apologized that lab results didn't get routed to me I just found them. Advised that she needs f/u visit as we had planned -- today or early next week and to call Jacqueline in this office today to schedule. Telehealth visit recommended -- I need to see her joints so phone won't work. In person visit is fine, too. Note -- secure message sent to Jacqueline Dao per current department plan. documented in this encounter Plan of Treatment Upcoming Encounters Date Type Specialty Care Team Description 10/19/2021 Office Visit Rheumatology Cornelia Hart APRN [facility] [place]AT[place] [address] (Wo rk) documented as of this encounter Visit Diagnoses Not on filedocumented in this encounter Care Teams Dba Developer Relationship Specialty Start Date End Date Marisa Interiano APRN PCP - General Internal Medicine 01/25/17 [address] [place] [address] documented as of this encounter
--- OUTSIDE RECORDS SUMMARY | 2021-10-06 12:42 | XMS_ITS | Encounter Summary ---
:1960 Author Organization [facility] [place] [address] Care Team Providers Name Role Phone Moriah Interianozuly Siu APRN Primary Care Provider Encounter Details Date Type Department Care Team Description 02/05/2017 Telephone Otolaryngology at [facility] [place] [address] Social History Tobacco Use Types Packs/Day Years Used Date Never Smoker Smokeless Tobacco: Never Used Sex Assigned at Date Recorded Not on file documented as of this encounter Miscellaneous Notes Telephone Encounter - Heriberto Anders - 02/05/2017 12:39 PM EST Spoke to Donya and confirmed surgery date of 02/13, mailed surgery packet and follow up. documented in this encounter Plan of Treatment Upcoming Encounters Date Type Specialty Care Team Description 10/19/2021 Office Visit Rheumatology Cornelia Hart APRN [facility] ER [address] [place], [place] [address] (Wo rk) documented as of this encounter Visit Diagnoses Not on filedocumented in this encounter Care Teams Director Of Strategy & Mobile Relationship Specialty Start Date End Date Marisa Interiano APRN PCP - General Internal Medicine 01/25/[address] [place] [address] documented as of this encounter
--- OUTSIDE RECORDS SUMMARY | 2021-10-06 12:42 | XMS_ITS | Encounter Summary ---
:1960 Author Organization [facility] Address One [facility] [place] [address] Care Team Providers Name Role Phone Marisa Interiano AKI Primary Care Provider Reason for Visit Reason Comments Follow-up Encounter Details Date Type Department Care Team Description 01/22/2020 Office Visit Rheumatology at [facility] Kameron Anders, Inflammatory arthritis (Prim timothy Dx); [facility] DO Chronic pain of left knee; [facility] Chronic pain of right knee; [place] [address] [facility] Elevated C-reactive protein (CRP) [phone] RHEUMATOLOGY [place], [place] [address] Social History Tobacco Use Types [...] Sign Reading Time Taken Comments Blood Pressure 132/78 01/22/2020 10:54 AM EDT Pulse 72 01/22/2020 10:54 AM EDT Temperature - - Respiratory Rate 16 01/22/2020 10:54 AM EDT Oxygen Saturation 100% 01/22/2020 10:54 AM EDT Inhaled Oxygen Concentration - - Weight 94.2 kg (207 lb 9.6 oz) 01/22/2020 10:54 AM EDT Height 157.5 cm (5' 2) 01/22/2020 10:54 AM EDT Body Mass Index 37.97 01/22/2020 10:54 AM EDT documented in this encounter Progress Notes Kameron Anders, DO - 01/22/2020 11:00 AM EDT Rheumatology Outpatient Progress Note Interval History: Donya Whiteside is a 59 y.o. female returns today for f/u of inflammatory arthritis and + PRAMOD 1:160 CC: Hand pain and swelling HPI: Donya reports feeling the same as her first visit with us in August. She has persistent pain, swelling and stiffness of the hands and feet that was not improved by prednisone. She completed the prednisone taper but did not have any benefit. 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 Her feet and top of ankles are also painful and stiff, similar to her hands. Ibuprofen 800mg BID does help with the pain. She denies any new symptoms. ROS: All systems reviewed are negative except as in HPI Current Outpatient Medications Medication Sig Dispense Refill ??? baclofen (Lioresal) 10 mg Tablet Take [...] tablet ??? ibuprofen (MOTRIN) 800 mg tablet ??? hydrOXYchloroQUINE (Plaquenil) 200 mg Tablet Take 1 tablet by mouth 2 times daily. Indications: rheumatoid arthritis 60 tablet 3 ??? meloxicam (MOBIC) 15 mg Tablet Take 1 tablet by mouth daily. 90 tablet 3 No current facility-administered medications for this visit. Allergies Allergen Reactions ??? Codeine Phosphate CIS - Nausea/Vomiting ??? Oxycodone Nausea And Vomiting ??? Promethazine Hcl CIS - agitation, confusion Physical Exam: BP 132/78 Pulse 72 Resp 16 Ht 157.5 cm (5' 2) Wt 94.2 kg (207 lb 9.6 oz) SpO2 100% BMI 37.97 kg/m?? General NAD Eyes: EOMI no scleral icterus or conjunctival injection Lymph: No anterior or posterior cervical LAD Cardiovascular: RR, (-)murmurs, rubs, or gallops. Lungs: Clear to auscultation bilaterally, (-)R/R/W Neuro: Alert and oriented x3. Non focal Skin: (-)ulcers, (-)rash Extremities Shoulders: FROM, non-tender to palpation Elbows:FROM, (-)pain, (-)nodules Wrists: FROM, mild synovitis and TTP of L wrist Hands: Synovitis and TTP of bilateral 2nd-4th MCPs; no synovitis of PIP or DIP joints; full claw andfist Knees: (-)effusions, non-tender ROM Ankles: FROM bilaterally but with mild swelling and TTP (R worse than L) Feet: MTP compression tenderness bilaterally MSK US - L hand/wrist limited exam: grade 1 synovitis by greyscale with negative PD of 2nd and 5th MCPs without cortical irregularities. Small wrist effusion; negative PD. Speckled echogenicity of TFCC. Labs 05/2019 at [facility]: Unremarkable hemogram, CMP Lipids: total 194; triglycerides 160; HDL 38; LDL 124 ESR 12 CRP 0.34 mg/dL => 34 mg/L RF negative PRAMOD positive 1:160 speckled (run at [facility] by indirect immunofluorescence) Lyme Ab negative 09/2019 - ZENA panel negative - Parvovirus IgG + IgM - - CCP neg - PRAMOD negative, ZENA negative - ESR 8 CRP 0.36mg/dL (H) - Hepatitis BcAb, HBsAg negative; HBsAb + - HCV neg Studies 09/2019 XR hands - unremarkable - per my read there is some soft tissue swelling in the L 3rd PIP region - otherwise no JSN, erosions, or chondrocalcinosis. 05/2019 [facility] (per radiology report, images not viewed): ?? Hips/pelvis -- mild degenerative changes of both hips and SI joints with fairly well preserved joint spaces ?? Left foot -- small osteophyte at side of attachment of plantar fascia on the calcaneus; mild degenerative changes at the cuneiform metatarsal joint and IP joints of foot. Assessment: Donya Whiteside is a 59 y.o. female who returns in follow up of inflammatory arthritis affecting her hands, wrists, feet and ankles with a negative RF/CCP, positive PRAMOD and no other serologic or clinical signs of a connective tissue disease, in the setting of a history of JAKE in her daughter. Donya has objective findings of inflammation with elevated CRP and synovitis on physical exam. MSK US with negative power doppler suggests this is a chronic synovitis, and presence of speckled hyperechogenicity in the triangular fibrocartilage complex of the left wrist raises the suspicion for CPPD, which can mimic seronegative RA. Donya does not have symptoms of a spondyloarthropathy such as psoriatic arthritis. The differentials at this point are seronegative RA vs. CPPD. XR of the knees will be helpfulto look for chondrocalcinosis, and XR of the feet/ankles is also indicated to look for other evidence of an inflammatory arthritis. While her diagnosis is being sorted out, we discussed treatment options, such as hydroxychloroquine and NSIADs. I explained that in some cases a patient's response to treatment aids in narrowing the differential. We discussed starting Hydroxychloroquine, which may be helpful for seronegative RA and has been usedin CPPD. Her symptoms did not improve with prednisone which is unusual for an inflammatory arthritis, but had responded to high dose ibuprofen. To minimize pill burden and GI upset we will change ibuprofen to meloxicam. Plan: - Start HCQ 200mg BID - she will update her eye doctor that she is on plaquenil - Change Ibuprofen 800mg to Meloxicam 15mg daily - XR knees to assess for CPPD - XR ankles, feet to assess for inflammatory arthritis changes - Repeat Esr and CRP RTC 3 mo or sooner if needed I spent 60 minutes with the patient and 45 minutes were spent in patient education, counseling and discussion of the plan above. Kameron Anders DO [facility] Rheumatology documented in this encounter Plan of Treatment Upcoming Encounters Date Type Specialty Care Team Description 10/19/2021 Office Visit Rheumatology Cornelia Hart, MACHINE OPERATOR GENERAL [facility] RHEUMATOLOGY [place], [place] [address] (Wo rk) documented as of this encounter Visit Diagnoses Diagnosis Inflammatory arthritis - Primary Unspecified inflammatory polyarthropathy Chronic pain of left knee Pain in joint, lower leg Chronic pain of right knee Elevated C-reactive protein (CRP) documented in this encounter Care Teams Nursing Services Manager Relationship Specialty Start Date End Date Marisa Interiano, MACHINE OPERATOR GENERAL PCP - General Internal Medicine 01/25/[address] [place] [address] documented as of this encounter
--- OUTSIDE RECORDS SUMMARY | 2021-10-06 12:42 | XMS_ITS | Encounter Summary ---
:1960 Author Organization [place] [address] Care Team Providers Name Role Phone Marisa Interiano APRN Primary Care Provider Encounter Details Date Type Department Care Team Description 01/30/2017 Telephone Otolaryngology at [facility] [address] Social History Tobacco Use Types Packs/Day Years Used Date Never Assessed Sex Assigned at Date Recorded Not on file documented as of this encounter Miscellaneous Notes Telephone Encounter - Maryse Noonan - 01/30/2017 9:30 AM EDT Opened in error documented in this encounter Plan of Treatment Upcoming Encounters Date Type Specialty Care Team Description 10/19/2021 Office Visit Rheumatology Cornelia Hart APRN [facility] [address] [place], [place] [address] (Wo rk) documented as of this encounter Visit Diagnoses Not on filedocumented in this encounter Care Teams Structural Rigger Relationship Specialty Start Date End Date Marisa Interiano APRN PCP - General Internal Medicine 01/25/[address] [place] [address] [place] [address] documented as of this encounter
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
--- OUTSIDE RECORDS SUMMARY | 2021-10-06 12:42 | XMS_ITS | Encounter Summary ---
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 [address] [place] [address] [phone] (Wo rk) Social History Tobacco Use Types [...] Sign Reading Time Taken Comments Blood Pressure 164/99 02/13/2017 9:30 AM EST Pulse 73 02/13/2017 6:15 AM EST Temperature 36.3 ??C (97.3 ??F) 02/13/2017 8:50 AM EST Respiratory Rate 16 02/13/2017 6:15 AM EST Oxygen Saturation 97% 02/13/2017 9:30 AM EST Inhaled Oxygen Concentration - - Weight - - Height - - Body Mass Index - - documented in this encounter Discharge Instructions Discharge InstructionsLetha Milan RN - 02/13/2017 9:08 AM EST POST ANESTHESIA INSTRUCTIONS Go home, rest, use caution on stairs. Change positions slowly. Do not smoke if you are alone. Diet light to regular as tolerated today. If nausea occurs start with clear liquids and progress slowly. No driving, operating machinery, alcoholic beverages and no important decisions for 24 hours. Monitor IV site for signs and symptoms of infection: increasing redness, swelling, foul drainage, ifoccurs contact M.D. Patients who have had endotrachial tubes (this tube, used by anesthesia department, is passed down your throat after you are asleep, to ensure safe air passage during your operation). A sore throat is normal due to the tube. Cold liquids or soothing lozenges will help ease the discomfort. The generalized muscle aches are due to the medication given to you just before the tube is inserted. As the medication wears off, you may develop muscle soreness, which usually goes away in 12-24 hours. Patient InstructionsTalib García MD - 02/13/2017 8:40 AM EST Otolaryngology patient discharge instructions You have had a papilloma removed from your voice box. Instructions: -No straining for the next few days -Avoid using your voice for the next few 4 days then begin slowly using your voice more over the following few days. -Drink plenty of water. -Eat a soft, non-spicy diet for the next few days. -Smoking is very damaging to your vocal cord healing and increases the chance of forming more polyps; so we strongly recommend not smoking. Especially during the next 2-3 weeks. -Call if you develop stridor (noisy breathing), difficulty breathing, bleeding/coughing up blood, fever, worsening pain, or other concerning symptoms. A follow up appointment will be made in 2-3 weeks. If you don't hear from us within the next week, call the clinic at [phone] to confirm your appointment, or for questions or concerns post-operatively. Future Appointments Date Time Provider Department Center 03/01/2017 1:00 PM Jamia Bahena APRN [facility] CLIN Contact numbers: Contact Information ENT triage nurse ENT doctor concession worker [phone] (after hours) documented in this encounter Medications at Time of Discharge Medication Sig Dispensed Refills Start Date End Date traZODone (DESYREL) 50 mg Take 50 mg by mouth 0 1 Tablet as needed. omeprazole (PRILOSEC) 40 Take 40 mg by mouth 0 mg Capsule, Delayed 2 times daily. Release(E.C.) OMEGA-3S/DHA/EPA/FISH OIL Take 1 tablet by 0 (OMEGA 3 ORAL) mouth daily. CALCIUM CARBONATE/VITAMIN Take 2 tablets by 0 D3 (VITAMIN D-3 ORAL) mouth daily. rizatriptan (MAXALT) 5 mg 0 10/28/2008 tablet ibuprofen (MOTRIN) 800 mg 0 10/28/2008 07/28/2020 tablet documented as of this encounter Progress Notes Caesar Dennison RN - 02/13/2017 10:32 AM EST Reviewed D/C instructions with patient and . Verbalized understanding. All questions and concerns were addressed at this time. documented in this encounter H&P Notes Scoboy Mcneil Jr., MD - 02/13/2017 7:11 AM EST INTERVAL H&P S: Donya Whiteside's condition unchanged since H&P originally performed Denies any new ED visits, hospitalizations, trauma, or new events. Has been overall doing well. O: Patient Vitals for the past 24 hrs: BP Temp Temp src Pulse Resp SpO2 02/13/17 0615 135/75 36.3 ??C (97.3 ??F) Oral 73 16 100 % NAD, A&Ox3 Non-labored respirations, clear to auscultation bilaterally Regular rate and rhythm, no murmur on auscultation AP: 56 y.o. female with vocal cord lesion. - After extensive discussion of the risks, benefits, and alteratives of surgical intervention, the patient consented to proceed with surgery. -IV abx ordered - Proceed to OR for: Procedure(s): LARYNGOSCOPY, DIRECT, EXCISION OF TUMOR, CORD STRIPPING, MICRO ([facility] 4.52) Scooby Mcneil Jr, MD documented in this encounter Miscellaneous Notes Op Note - Renny Arita MD - 02/13/2017 8:42 AM EST Operative Note Patient Name: Donya Whiteside Date: 02/13/2017 Procedure(s): LARYNGOSCOPY, DIRECT, EXCISION OF TUMOR, CORD STRIPPING, MICRO ([facility] 4.52) Surgeon(s) and Role: * Renny Arita MD - Primary * Talib García MD - Resident-Surgeon Chief * Scooby Mcneil Jr., MD - Resident-Surgeon Momo Preoperative diagnosis: laryngeal lseion Postoperative diagnosis: same Anesthesia: Jet ventilation EBL: 5 cc Disposition: awakened from anesthesia, extubated and taken to the recovery room in a stable condition, having suffered no apparent untoward event. 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 Procedure in detail: The patient was brought to the operating room, placed supine on the operating room table. General anesthesia was induced. The bed was spun 90 degrees for anesthesia. The Korin laryngoscope was used to perform direct laryngoscopy. The laryngoscope was placed into suspension using Lewy arm. The zero degree Smith donaldo attached to the 1288 camera attached to the endoscopy tower was used to visualized structures of the supraglottic, glottic, subglottic airway. The jet ventilation device was placed through the Korin laryngoscope through the true vocal cords and connected to the anesthesia jet ventilation circuit. Jet ventilation was commenced and adequate chest rise was noted bilaterally. The jet ventilation was periodically paused throughout the case after adequate oxygenation and ventilation to perform the debridement of the papilloma. The jet ventilation was paused, the jet ventilation device removed from the glottic airway. The straight shot laryngeal police shift commander blade was used to debride the papilloma from the right mid true vocal fold, taking care not to cause injury to the underlying vocalis muscle. Additional debridement was performed of a sessile papilloma in the anterior commissure as well as on the left true vocal cord process of the arytenoid. Palpable adrenalin on neuro patties was used for hemostasis. The laryngeal emergency response technician was removed. Jet ventilation was performed. Laryngoscope was removed from the patient's month. Patient taken out of suspension. Patient returned to anesthesia for masked ventilation. She was allowed to awaken with return to the recovery area with no untoward events. Findings: Large exophytic papilloma of right mid-true vocal cord. Sessile papilloma of anterior commissure on right TVC. Sessile papilloma of left ventricle region near anterior commissure. Posterior left vocal process sessile papilloma. Attestation: Case Date: 02/13/2017 I was present and I participated during the entire procedure (does not need to include opening and closing). RENNY ARITA MD 02/20/2017 documented in this encounter Plan of Treatment Upcoming Encounters Date Type Specialty Care Team Description 10/19/2021 Office Visit Rheumatology Cornelia Hart, LABOR RELATIONS SPECIALIST [facility] [address] [place] [address] (Wo rk) documented as of this encounter Procedures Procedure Name Priority Date/Time Associated Diagnosis Comme nts SPECIMEN TO Routine 02/13/2017 8:00 AM Results f or this PATHOLOGY EST procedure are i n the results section. SURGICAL PATHOLOGY Routine 02/13/2017 7:59 AM Res ults for this REPORT EST procedure are i n the results section. LARYNGOSCOPY, 02/13/2017 7:35 AM Recurrent respiratory DIRECT, EXCISION EST papillomatosis OF TUMOR, CORD STRIPPING, MICRO ([facility] 4.52) documented in this encounter Results Specimen to Pathology (surgical or derm) (02/13/2017 8:00 AM EST) Specimen Anatomical Collection Method Collection Time Receive d Time (Source) Location / / Volume Laterality AP Specimen 02/13/2017 8:00 AM 7 8:00 EST AM EST Narrative [facility] - 02/13/2017 8:00 AM EST Specimen requisition ordered. ??Separate Pathology report to follow Renny Arita MD PATHOLOGY/CYTOLOGY ORDERABLE S Performing Organization Address City/State/[place] [address] Surgical Pathology Report (02/13/2017 7:59 AM EST) Component Value Ref Test Analysis Performed At [facility] Range Method Time Signature Surgical [id number] ? Location: [facility]; [facility]; [facility] Report The signing pathologist has (i) examined the relevant preparation(s) for the [facility] specimen(s) and (ii) rendered or confirmed the diagnosis(es) . HOSPITAL LABORATORY . ?Surgic al Pathology DIAGNOSIS Right vocal cord lesion, biopsy: Squamous papilloma. (see Discussion) Electronically signed by: ??Cecilia RAMOS, Scarlett Ch Verified: ??02/19/2017 ?Pathologist Performed at: ??-[facility] Dept. of Pathology, [place], [place] DISCUSSION Viral cytopathic effect is p resent. ??HPV genotyping can be performed if clinically indicated. CLINICAL INFORMATION Specimen Submitted: A - Right vocal cord lesion Clinical History: Laryngeal lesion Clinical Diagnosis: Same SPECIMEN PROCESSING A - ??Labeled/Fixative: Right vocal cord lesion, fresh. Quantity/Size: Four, ranging from 0.4-0.6 cm. Tissue Description: ??Soft, white tissues . Sections/Processing: (T1) ??sns Specimen (Source) Anatomical Collection Method Collection Time Re ceived Time Location / / Volume Laterality 02/13/2017 7:59 AM EST Renny Arita MD PATHOLOGY/CYTOLOGY ORDERABLE S Performing Organization Address City/State/[place] [address] documented in this encounter Visit Diagnoses Diagnosis Recurrent respiratory papillomatosis documented in this encounter Administered Medications Inactive Administered Medications - up to 3 most recent administrations Medication Order MAR Action Action Date Dose Rate Site acetaminophen (TYLENOL) tablet Given 02/13/2017 6:40 AM EST 1,00 0 mg 1,000 mg 1,000 mg, Oral, ONCE, 1 dose, On Sun02/13/17 at 0630, Administer with SIP of H2O only., Day of Surgery (Day of Procedure), Routine acetaminophen (TYLENOL) tablet 650 mg 650 mg, Oral, EVERY 4 HOURS PRN, Starting on 02/13 at 0841, Until Sun02/13/17 at 1313, Pain, Maximum dose of acetaminophen is 4000 mg from all sources in 24 hours., Routine EPINEPHrine (ADRENALIN) nasal Given 02/13/2017 8:06 AM EST 30 mL s 19- Surgical Site solution ONCE PRN, Starting on Sun02/13/17 at 0806, Until Sun02/13/17 at 1313, Intra-Operative (Intra-Procedure), Routine ibuprofen (ADVIL;MOTRIN) 100 mg/5 mL Given 02/13/2017 9:20 AM ES T 400 mg suspension 400 mg 400 mg, Oral, EVERY 6 HOURS PRN, Starting on Sun02/13/17 at 0857, Until Sun02/13/17 at 1313, Pain, Administer orally with milk or food to minimize GI irritation , Recovery (Recovery-Hospital Unit), Routine lactated Ringers infusion 1,000 New Bag 02/13/2017 6:42 AM EST 1,000 mLs 100 mL/hr mL 1,000 mL, at 100 mL/hr, Intravenous, CONTINUOUS, Starting on Sun02/13/17 at 0630, Until Sun02/13/17 at 1112, Day of Surgery (Day of Procedure) lidocaine (XYLOCAINE) 10 mg/mL (1 %) injection Given 1 04/15/2016 6:42 AM EST 3 mg 3 mg 3 mg (0.3 mL), Subcutaneous, ONCE PRN, 1 dose, Starting on Sun02/13/17 at 0609, Until Sun02/13/17 at 0642, for discomfort with PIV insertion, Day of Surgery (Day of Procedure), Routine scopolamine Patch Applied 02/13/2017 7:15 AM 1 patch 02 - Ear Behind (TRANSDERM-SCOP) 1.5 mg (1 EST (Right) mg over 3 days) patch 1 patch 1 patch, Transdermal, ONCE, 1 dose, On Sun02/13/17 at 0730, Day of Surgery (Day of Procedure), STAT scopolamine (TRANSDERM-SCOP) 1.5 mg (1 m g over 3 days) patch 1 dose, Starting on Sun02/13/17 at 0707, Until Sun at 0715, Mary Dougherty: cabineradha override SUMAtriptan (IMITREX) tablet 50 mg Given 02/13/2017 10:55 AM EST 50 mg 50 mg, Oral, ONCE, 1 dose, On Sun02/13/17 at 1100, Maximum dose: 200mg in 24 hours, STAT documented in this encounter Active and Recently Administered Medications Times are shown in EST. Scheduled Medication Order 02/11/2017 02/12/2017 02/13/2017 acetaminophen (TYLENOL) tablet 1,000 mg (COMPLETED) 0640 (Given - Provider: Radha Day RN) 1,000 mg, Oral, ONCE, 1 dose, Sun at 0630, Administer with SIP of H2O only., Day of Surgery (Day of Procedure), Routine scopolamine (TRANSDERM-SCOP) 1.5 mg (1 m g over 3 days) patch 1 patch (COMPLETED) 0715 (Patch Applied - Provider: Mary Dougherty, RN) 1 patch, Transdermal, ONCE, 1 dose, Sun02/13/17 at 0730, Day of Surgery (Day of Procedure), STAT SUMAtriptan (IMITREX) tablet 50 mg (COMPLETED) 1055 (Given - Provider: Caesar Dennison, RN)1100 (Due) 50 mg, Oral, ONCE, 1 dose, On Sun at 1100, Maximum dose: 200mg in 24 hours, STAT Continuous Medication Order 02/11/2017 02/12/2017 02/13/2017 lactated Ringers infusion 1,000 mL (CANCELED) 0642 (New Bag - Provider: Radha Day, FILIBERTO) 1,000 mL, at 100 mL/hr, Intravenous, CON TINUOUS, Starting Sun02/13/17 at 0630, Until Sun02/13/17 at 1112, Day of Surgery (Day of Procedure) PRN Medication Order 02/11/2017 02/12/2017 02/13/2017 acetaminophen (TYLENOL) tablet 650 mg 650 mg, Oral, EVERY 4 HOURS PRN, Startin g Sun02/13/17 at 0841, Until Sun02/13/17 at 1313, Pain, Maximum dose of acetaminophen is 4000 mg from all sources in 24 hours., Routine EPINEPHrine (ADRENALIN) nasal solution (CANCELED) 0806 (Given - Provider: Talib García MD) ONCE PRN, Starting Sun02/13/17 at 0806, Until Sun02/13/17 at 1313, Intra- Operative (Intra-Procedure), Routine ibuprofen (ADVIL;MOTRIN) 100 mg/5 mL suspension 400 mg 0920 (Given - Provider: Letha Milan RN) 400 mg, Oral, EVERY 6 HOURS PRN, Startin g Sun02/13/17 at 0857, Until Sun02/13/17 at 1313, Pain, Administer orally with milk or food to minimize GI irritation , Recovery (Recovery-Hospital Unit), Routine lidocaine (XYLOCAINE) 10 mg/mL (1 %) injection 3 mg (COMPLETED) 0642 (Given - Provider: Radha Day RN) 3 mg (0.3 mL), Subcutaneous, ONCE PRN, 1 dose, Starting Sun02/13/17 at 0609, Until Sun02/13/17 at 0642, for discomfort with PIV insertion, Day of Surgery (Day of Procedure), Routine documented in this encounter Care Teams Cottage Cheese Maker Relationship Specialty Start Date End Date Marisa Interiano APRN PCP - General Internal Medicine 01/25/[address] [place] [address] documented as of this encounter
--- OUTSIDE RECORDS SUMMARY | 2021-10-06 12:42 | XMS_ITS | Encounter Summary ---
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 [address] [place] [address] [phone] (Wo rk) Social History Tobacco Use Types [...] Sign Reading Time Taken Comments Blood Pressure 172/102 02/13/2017 10:00 AM EST Pulse 73 02/13/2017 6:15 AM EST Temperature 36.3 ??C (97.3 ??F) 02/13/2017 8:50 AM EST Respiratory Rate 16 02/13/2017 6:15 AM EST Oxygen Saturation 100% 02/13/2017 10:00 AM EST Inhaled Oxygen Concentration - - [...] the next week, call the clinic at [phone] to confirm your appointment, or for questions or concerns post-operatively. Future Appointments Date Time Provider Department Center 03/01/2017 1:00 PM Jamia Bahena APRN [facility] CLIN Contact numbers: Contact Information ENT triage nurse ENT doctor production metal sprayer [phone] (after hours) documented in this encounter Medications [...] time. documented in this encounter H&P Notes Scooby Mcneil Jr., MD - 02/13/2017 7:11 AM [...] the glottic airway. The straight shot laryngeal computer patternmaker blade was used to debride the papilloma from the right mid true vocal fold, taking care not to cause injury to the underlying vocalis muscle. Additional debridement was performed of a sessile papilloma in the anterior commissure as well as on the left true vocal cord process of the arytenoid. Palpable adrenalin on neuro patties was used for hemostasis. The laryngeal stoneworking sander was removed. Jet ventilation was performed. Laryngoscope [...] Description 10/19/2021 Office Visit Rheumatology Cornelia Hart, CEMENT FINISHING SUPERVISOR [facility] RHEUMATOLOGY [place] [address] (Wo rk) documented as of this encounter [...] AM 7 8:00 EST AM EST Narrative [facility] - 02/13/2017 8:00 AM EST Specimen requisition ordered. ??Separate Pathology report to follow Renny Arita MD PATHOLOGY/CYTOLOGY ORDERABLE S Performing Organization Address City/State/ZIP [place] [address] [facility] [address] Surgical Pathology Report (02/13/2017 7:59 AM EST) Component Value Ref Test Analysis Performed At [facility] gist Range Method Time Signature Surgical [id number] ? Location: [facility]; [facility]; [facility] Report The signing pathologist has (i) examined the relevant preparation(s) for the [facility] specimen(s) and (ii) rendered or confirmed the diagnosis(es) . HOSPITAL LABORATORY . ?Surgic al Pathology DIAGNOSIS Right vocal cord lesion, biopsy: Squamous papilloma. (see Discussion) Electronically signed by: ??Scarlett Brooks MD Verified: ??02/19/2017 ?Pathologist Performed at: ??-[facility] Dept. of Pathology, [place], [place] DISCUSSION Viral cytopathic effect is p [...] Organization Address City/State/ZIP [place] [address] [facility] [address] documented in this encounter Visit Diagnoses Not [...] from all sources in 24 hours., Routine ibuprofen (ADVIL;MOTRIN) 100 mg/5 mL Given [...] at 0707, Until Sun at 0715, Mary Dougherty.: ervin rosas SUMAtriptan (IMITREX) tablet 50 mg Given 02/13/2017 [...] (COMPLETED) 0715 (Patch Applied - Provider: Mary Dougherty RN) 1 patch, Transdermal, ONCE, 1 dose, Sun02/13/17 at 0730, Day of Surgery (Day of Procedure), STAT SUMAtriptan (IMITREX) tablet 50 mg (COMPLETED) 1055 (Given - Provider: Caesar A Dennison, RN)1100 (Due) 50 mg, Oral, ONCE, 1 dose, On Sun at 1100, Maximum dose: 200mg in 24 hours, STAT Continuous Medication Order 02/11/2017 02/12/2017 02/13/2017 lactated Ringers infusion 1,000 mL (CANCELED) 0642 (New Bag - Provider: Radha Day RN) 1,000 mL, at 100 mL/hr, Intravenous, CON [...] Routine documented in this encounter Care Teams General Supervisor Relationship Specialty Start Date End Date Marisa Interiano APRN PCP - General Internal Medicine 01/25/17 [address] [place] [phone] documented as of this encounter
--- OUTSIDE RECORDS SUMMARY | 2021-10-06 12:42 | XMS_ITS | Encounter Summary ---
:1960 Author Organization [facility] [place] [address] Care Team Providers Name Role Phone Marisa Interiano Sherron PRABHAKAR Primary Care Provider Encounter Details Date Type Department Care Team Description 03/02/[address] [facility] [place] [address] [phone] [place] [address] (Wo rk) Social History Tobacco Use Types [...] this encounter Miscellaneous Notes Telephone Encounter - Jamia Bahena APRN - 03/02/2017 5:03 PM EST Telephone message left with the patient. Results of pathology given. If patient wishes to follow with Dr. Gomez locally, she will do so. If she wishes to follow-up here, she will contact us. documented in this encounter Plan of Treatment Upcoming Encounters Date Type Specialty Care Team Description 10/19/2021 Office Visit Rheumatology Cornelia Hart APRN [facility] [address] [place], [place] [address] (Wo rk) documented as of this encounter Visit Diagnoses Not on filedocumented in this encounter Care Teams Baseball Winder Relationship Specialty Start Date End Date Marisa Interiano APRN PCP - General Internal Medicine 01/25/[address] [place] [address] documented as of this encounter
--- OUTSIDE RECORDS SUMMARY | 2021-10-06 12:42 | XMS_ITS | Encounter Summary ---
:1960 Author Organization [facility] [place] [address] Care Team Providers Name Role Phone Marisa Interiano APRN Primary Care Provider Encounter Details Date Type Department Care Team Description 02/05/2017 Telephone Otolaryngology at [facility] [address] Social History Tobacco Use Types Packs/Day Years Used Date Never Smoker Smokeless Tobacco: Never Used Sex Assigned at Date Recorded Not on file documented as of this encounter Miscellaneous Notes Telephone Encounter - Heriberto Anders - 02/05/2017 11:46 AM EST Called home [phone]- left a voice mail offering first available of 02/13. She will call to confirm, I will hold this date. documented in this encounter Plan of Treatment Upcoming Encounters Date Type Specialty Care Team Description 10/19/2021 Office Visit Rheumatology Cornelia Hart APRN [facility] ER [address] [place] [employer], [place] [address] (Wo rk) documented as of this encounter Visit Diagnoses Not on filedocumented in this encounter Care Teams Real Estate Listing Consultant Relationship Specialty Start Date End Date Marisa Interiano APRN PCP - General Internal Medicine 01/25/[address] [place] [address] documented as of this encounter
--- OUTSIDE RECORDS SUMMARY | 2021-10-06 12:42 | XMS_ITS | Encounter Summary ---
:1960 Author Organization [employer] [place] [address] Care Team Providers Name Role Phone Marisa Interiano BLOCKER AND POLISHER Primary Care Provider Reason for Visit Reason Comments Dysphagia Consultation (Routine) - Specialty Diagnoses / Procedures Referred By Contact Refer red To Contact Otolaryngology Diagnoses Polyp of vocal cord and larynx vocal cord/larynx polyp, need sugery and due to insurance, can not be done in Spring Jason Howe Ossoff, Jacob P, MD [facility] [address] [place] [address] [place] [address] Fax: Referral ID Status Reason Start Date Expiration Date Visits V isits Requested Authorized [id number] Consult, Test 01/24/2017 01/24/2018 10 10 & Treat [facility] PCP Updated and/or Approved Encounter Details Date Type Department Care Team Description 02/05/2017 Office Visit Otolaryngology at [facility] [place], Recurrent respiratory [facility] [place]enny [place] [address] CENTER [phone] [place] [address] Social History Tobacco Use Types Packs/Day Years Used Date Never Smoker Smokeless Tobacco: Never Used Sex Assigned at Date Recorded Not on file documented as of this encounter Last Filed Vital Signs Vital Sign Reading Time Taken Comments Blood Pressure 139/83 02/05/2017 8:12 AM EST Pulse 94 02/05/2017 8:12 AM EST Temperature - - Respiratory Rate - - Oxygen Saturation - - Inhaled Oxygen Concentration - - Weight 93.9 kg (207 lb) 02/05/2017 8:12 AM EST Height 157.5 cm (5' 2) 02/05/2017 8:12 AM EST Body Mass Index 37.86 02/05/2017 8:12 AM EST documented in this encounter Progress Notes Renny Aleman MD - 02/05/2017 8:20 AM EST [facility] NEW PATIENT CONSULTATION I was asked to see Donya Whiteside in consultation by Jason Howe for recurrent laryngealpapilloma History was obtained through review of the relevant records, discussion with referring physician and/or patient interview. This is a 56 y.o. female with a history of recurrent laryngeal papilloma. She initially had surgery back in the 80s and the old [facility] followed by another procedure in 2001 and 2003. She was supposed to have another operation 2006 but this was canceled due to change in time and had not sought further treatment since that time. She reports that her voice has been getting progressively worse and she recently saw Dr. Howe and was noted to have a ball valving papilloma on the vocal cord. Surgery was arranged however her insurance did not cover this procedure at the specified hospitaland she was referred here for further management. Currently she reports hoarseness of the voice but denies any dyspnea or difficulty laying flat. She does report some dysphasia and also has a history of gastroesophageal reflux disease. She was recently started on omeprazole for this. She denies any hemoptysis, adenopathy, odynophagia, otalgia, stridor. She is a non-smoker. PROBLEM LIST There is no problem list on file for this patient. PAST MEDICAL HISTORY Past Medical History: Diagnosis Date ??? Allergic state ??? Asthma ??? Change in voice ??? Difficulty swallowing ??? Dry mouth ??? GERD (gastroesophageal reflux disease) ??? Migraines SOCIAL HISTORY Social History Substance Use Topics ??? Smoking status: Never Smoker ??? Smokeless tobacco: Never Used ??? Alcohol use Not on file MEDICATIONS Current Outpatient Prescriptions on File Prior to Visit Medication Sig Dispense Refill ??? rizatriptan (MAXALT) 5 mg tablet ??? ibuprofen (MOTRIN) 800 mg tablet No current facility-administered medications on file prior to visit. ALLERGIES Allergies Allergen Reactions ??? Codeine Phosphate CIS - Nausea/Vomiting ??? Oxycodone-Acetaminophen CIS - headache, nausea ??? Promethazine Hcl CIS - agitation, confusion ROS Pertinent positive findings discussed above. No other findings on review of constitutional visual, cardiovascular, respiratory, gastrointestinal, genitourinary, musculoskeletal, dermatologic, neurological, psychiatric, endocrine, hematologic or immunologic systems. PHYSICAL EXAMINATION Vitals: Blood pressure 139/83, pulse 94, height 157.5 cm (5' 2), weight 93.9 kg (207 lb). General: No acute distress Face: Normocephalic and atraumatic Eyes: Extraocular movement is full and intact. No dysconjugate gaze. No evidence of nystagmus. Periocular structures and conjunctiva healthy without lesions. Ears: Normal exam of the external ear, canal and tympanic membrane. Nose: Normal external exam. Normal exam of the septum and turbinates. Mouth: Lips and gingiva pink, moist, without lesions. Dentition in good repair. Tongue and floor of mouth soft without lesions or masses. Hard palate without lesions. Pharynx: Minimal tonsillar tissue. Mallampati 2 airway. Salivary: Normal exam of the parotid and submandibular glands. Neck: Soft supple without significant lymphadenopathy. Thyroid gland without masses or asymmetry. Trachea midline without deviation. Resp: Breathing comfortably without stridor or retractions. Normal respirations. CV: Normal carotid pulses. MSK: Normal neck range of motion, no trismus. Skin: Skin survey of the head and neck is without concerning lesion. Neurologic: Cranial nerves II-XII intact and symmetric. AxOx3, responds appropriately to questions. Psych: Normal mood and affect. PROCEDURES Procedure Flexible Fiberoptic Laryngoscopy Indication hoarseness Description Informed verbal consent obtained and time out performed. A flexible laryngoscope was used to evaluate bilateral nasal cavity, nasopharynx, oropharynx, hypopharynx and larynx. The examination was recorded on the [employer] and uploaded to the [employer] Worker. Findings Nasal cavity normal Nasopharynx status post adenoidectomy Oropharynx prominent lingual tonsil filling the vallecula Larynx papilloma along the right mid vocal cord ball valving into the airway but otherwise patent airway. Some granuloma appearing tissue along the vocal process and posterior vocal cord on the left aswell as a possible second papilloma near the anterior commissure on the right. 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 The patient's had progressively worsening hoarseness of voice and would like to have reexcision. We will arrange for a microlaryngoscopy with the debridement of the papilloma with a laryngeal microdebrider. Risks of surgery including bleeding infection, scarring, nerve damage, taste disturbance, numbness of the tongue, hoarseness were all reviewed and consent was signed in the office. I appreciate the opportunity to be involved in Ms. Whiteside's care. RENNY ALEMAN MD 02/05/2017 documented in this encounter Plan of Treatment Upcoming Encounters Date Type Specialty Care Team Description 10/19/2021 Office Visit Rheumatology Cornelia Hart APRN [facility] RHEUMATOLOGY [place], [place] [address] (Wo rk) documented as of this encounter Procedures Procedure Name Priority Date/Time Associated Diagnosis Comme nts LARYNGOSCOPY, DIRECT, Routine 02/05/2017 9:08 AM Recurrent Res piratory EXCISION OF TUMOR, EST Papillomatosis CORD STRIPPING, MICRO documented in this encounter Visit Diagnoses Diagnosis Recurrent respiratory papillomatosis documented in this encounter Care Teams Edge Stitcher Relationship Specialty Start Date End Date Marisa Interiano APRN PCP - General Internal Medicine 01/25/17 [place] [id number] documented as of this encounter
--- OUTSIDE RECORDS SUMMARY | 2021-10-06 12:42 | XMS_ITS | Encounter Summary ---
:1960 Author Organization [facility] [place] [address] Care Team Providers Name Role Phone Marisa Interiano AKI Primary Care Provider Reason for Visit Reason Onset Date Comments Other 10/15/2019 attempt to make an a ppointment Encounter Details Date Type Department Care Team Description 10/15/2019 Telephone Rheumatology at [facility] Joe Morales Other (attempt to make [facility] D rive an appointment) [place] [address] Social History Tobacco Use Types Packs/Day [...] this encounter Miscellaneous Notes Telephone Encounter - Joe Morales - 10/15/2019 9:49 AM EDT Called Donya's preferred phone number and the greeting, seeming a child, was Rogerio, this is [employer]'s phone and the VM was full. Called Donya's work phone which turns out to be the main number for [facility]. They found the departmentDonya is working in. Unfortunately, I was told that Donya is not in as she works nights. documented in this encounter Plan of Treatment Upcoming Encounters Date Type Specialty Care Team Description 10/19/2021 Office Visit Rheumatology Cornelia Hart, ORDER ENTRY ADMINISTRATOR [facility] RHEUMATOLOGY [place], [place] [address] (Wo rk) documented as of this encounter Visit Diagnoses Not on filedocumented in this encounter Care Teams Chairman And Chief Executive Officer Relationship Specialty Start Date End Date Marisa Interiano APRN PCP - General Internal Medicine 01/25/17 [address] [place] [address] documented as of this encounter
--- OUTSIDE RECORDS SUMMARY | 2021-10-06 12:42 | XMS_ITS | Encounter Summary ---
:1960 Author Organization [facility] [place] [place] [address] Care Team Providers Name Role Phone Marisa Interiano APRN Primary Care Provider Reason for Visit Reason Onset Date Comments Bumped Appointment 01/30/2017 Encounter Details Date Type Department Care Team Description 01/30/2017 Telephone Otolaryngology at [facility] Maryse Noonan [place] [address] Social History Tobacco Use Types Packs/Day Years Used Date Never Assessed Sex Assigned at Date Recorded Not on file documented as of this encounter Miscellaneous Notes Telephone Encounter - Maryse Noonan - 01/30/2017 9:17 AM EDT Left message for patient to call back to reschedule. Can move to [place] or . documented in this encounter Plan of Treatment Upcoming Encounters Date Type Specialty Care Team Description 10/19/2021 Office Visit Rheumatology Cornelia Hart APRN [facility] ER [address] [place], [place] [address] (Wo rk) documented as of this encounter Visit Diagnoses Not on filedocumented in this encounter Care Teams Bat Person Relationship Specialty Start Date End Date Marisa Interiano APRN PCP - General Internal Medicine 01/25/[address] [place] [address] documented as of this encounter
--- OUTSIDE RECORDS SUMMARY | 2021-10-06 12:42 | XMS_ITS | Encounter Summary ---
:1960 Author Organization [facility] [place] [address] Care Team Providers Name Role Phone Marisa Interiano GENERAL MAINTENANCE TECHNICIAN Primary Care Provider Encounter Details Date Type Department Care Team Description 09/18/2019 Ancillary Procedure Radiology Library at Marisa Interiano, [facility] GENERAL MAINTENANCE TECHNICIAN [facility] [address] [place] [phone] (Wo rk) Social History Tobacco Use Types [...] Visit Rheumatology Cornelia Hart APRN [facility] [address] [place], [place] [address] (Wo rk) documented as of this encounter Procedures Procedure Name Priority Date/Time Associated Diagnosis Comme nts FILM LIBRARY Routine 09/18/2019 3:03 PM Results f or this STORAGE ONLY DX EDT procedure ar e in HAND the results section. documented in this encounter Results Film Library- Storage Only DX Hand (09/18/2019 3:03 PM EDT) Specimen (Source) Anatomical Location Collection Method / Collectio n Time Received Time / Laterality Volume Narrative RAD - 09/18/2019 3:03 PM EDT This exam is auto-finalizing. It's purpo se is for storage only. Marisa Interiano APRN IMG FILM LIBRARY ORDERABLES Performing Organization Address City/State/ZIP Code Phon e Number [place], [place] documented in this encounter Visit Diagnoses Not on filedocumented in this encounter Care Teams Restaurant Delivery Driver Relationship Specialty Start Date End Date Marisa Interiano APRN PCP - General Internal Medicine 01/25/17 [address] [place] [address] documented as of this encounter
--- OUTSIDE RECORDS SUMMARY | 2021-10-06 12:42 | XMS_ITS | Encounter Summary ---
:1960 Author Organization [facility] [place] [address] Care Team Providers Name Role Phone Marisa Interiano Sherron PRABHAKAR Primary Care Provider Encounter Details Date Type Department Care Team Description 10/02/2019 Telephone Rheumatology at [facility] Joe Morales [facility] [place] [address] Social History Tobacco Use Types Packs/Day [...] 10/19/2021 Office Visit Rheumatology Cornelia Hart APRN [facility] ER [address] [place], [place] [address] (Wo rk) documented as of this encounter Visit Diagnoses Not on filedocumented in this encounter Care Teams Radiological Engineer Relationship Specialty Start Date End Date Marisa Interiano APRN PCP - General Internal Medicine 01/25/17 [address] [place] [address] documented as of this encounter
--- OUTSIDE RECORDS SUMMARY | 2021-10-06 12:42 | XMS_ITS | Encounter Summary ---
:1960 Author Organization [facility] [place] [address] Care Team Providers Name Role Phone Marisa Interiano AKI Primary Care Provider Encounter Details Date Type Department Care Team Description 09/16/2019 Telephone Rheumatology at [facility] Brice Pate, [place] [address] Social History Tobacco Use Types Packs/Day [...] this encounter Miscellaneous Notes Telephone Encounter - Brice Pate RN - 09/16/2019 1:15 PM EDT Called patient unavailable. Left with call back number. Telephone Encounter - Brice Pate RN - 09/16/2019 1:15 PM EDT ----- Message from Brit Arredondo APRN sent at 09/16/2019 11:51 AM EDT ----- Regarding: lab and xray I saw pt on 09/11/19. Labs and xrays to be done at outside facility. Pls see if she had these done. Thanks. documented in this encounter Plan of Treatment Upcoming Encounters Date Type Specialty Care Team Description 10/19/2021 Office Visit Rheumatology Cornelia Hart APRN [facility] RHEUMATOLOGY [place], [place] [address] (Wo rk) documented as of this encounter Visit Diagnoses Not on filedocumented in this encounter Care Teams Sleep Tech Relationship Specialty Start Date End Date Marisa Interiano APRN PCP - General Internal Medicine 01/25/[address] [place] [address] documented as of this encounter
--- OUTSIDE RECORDS SUMMARY | 2021-10-06 12:43 | XMS_ITS | Clinical Summary ---
:1960 Author Organization [facility] Address [address] [place] [address] Care Team Providers Name Role Phone Unknown, Provider Primary Care Provider Social History Tobacco Use Types Packs/Day Years Used Date Never Assessed Sex Assigned at Date Recorded Not on file Plan of Treatment Health Maintenance Due Date Last Done Comments COVID-19 Vaccine (1) 1967 Hepatitis C Screen Completed 09/18/2019 Care Teams Diamond Die Driller Relationship Specialty Start Date End Date Unknown, Provider, PCP - General 11/26/13
--- OUTSIDE RECORDS SUMMARY | 2021-10-06 12:43 | XMS_ITS | Encounter Summary ---
:1960 Author Organization [facility] Address [address] [place] [address] Care Team Providers Name Role Phone Unavailable Primary Care Provider Unavailable Encounter Details Date Type Department Care Team Description 2013 Results Only [facility] Janak Mercado, DIRECTOR CONTENT MARKETING Laboratory Services - [address] [place] [address] [address] [place] [address] [phone] Social History Tobacco Use Types Packs/Day Years Used Date Never Assessed Sex Assigned at Date Recorded Not on file documented as of this encounter Plan of Treatment Not on filedocumented as of this encounter Procedures Procedure Name Priority Date/Time Associated Diagnosis Comme nts PAP TEST- RESULT Routine 2013 0:00 EST Resu lts for this ONLY procedure are i n the results section. documented in this encounter Results PAP TEST- RESULT ONLY (2013 0:00 EST) Pathology Report: CYTOPATHOLOGY REPORT [facility] Reports generated via electronic interface contain zach ginal data; however they are lacking the format of the original re port. Caution should be taken when reading/interpreting unfo rmatted reports. Name: ? DONYA WHITESIDE ? Accession #: ? [id number] ? : ? 1960 (Age: 53) ??F ?Collect Da te: ? 2013 ? Location: ? [facility] ? Receive Date: ? 013 ? Provider: SHIRLENE MERCADO [facility] Copy to: GEMMA GILMORE MD ? Final Report SPECIMEN ADEQUACY ? Satisfactory for Evaluation - transformation zone component present GENERAL CATEGORIZATION ? Negative for Intraepithelial Lesion or Malignan cy ?? Last Menstrual Period: 02/24/2013 Specimen/Source: ??Pap Test, Cervix/Endocervix, ThinPr ep Imaging System with manual evaluation Document reviewed and electronically signed by: ? CARLYLE Castanon(ASCP) ? Report ??Date: 03/14/2013 14:50 HPV with Pap Test ? Date Ordered: ? 03/14/2013 ? Status: ?? Signed Out ?Date Complete: ? 03/18/2013 ? By: ??S ystem Interface ? Date Reported: ? 03/18/2013 ? Interpretation RESULT: Negative for HPV. No E6 or E7 mRNA is detected from HPV types 16,18,31,3 3,35, 39,45,51,52,56,58,59,66, and 68 by internet cafe manager media luis amplification. Comments Document reviewed and electronically signed by: ? System Interface ? Report date: 03/18/2013 By the signature above, the attending physician certif ies that he/she has personally conducted a gross and/or microscopic examin ation of the described specimens and rendered or confirmed the above diagnosi s. End of Report Specimen Performing Organization Address City/State/ZIP Code Phon e Number [facility] [address] [place] [address] SERVICES [facility] [address] [place] [address] documented in this encounter Visit Diagnoses Not on filedocumented in this encounter
--- OUTSIDE RECORDS SUMMARY | 2021-10-06 12:43 | XMS_ITS | Encounter Summary ---
:1960 Author Organization [facility] Address [address] [place] [address] Care Team Providers Name Role Phone Unavailable Primary Care Provider Unavailable Encounter Details Date Type Department Care Team Description 12/02/1999 Results Only [facility] - Cheyanne Hickman od, Brenda Rosenthal, MECHANICS HANDYMAN conversion [address] [place] [phone] (Wo rk) Social History Tobacco Use Types Packs/Day Years Used Date Never Assessed Sex Assigned at Date Recorded Not on file documented as of this encounter Plan of Treatment Not on filedocumented as of this encounter Procedures Procedure Name Priority Date/Time Associated Diagnosis Comme nts CYTOPATHOLOGY Routine 12/02/1999 0:00 EDT Results for this procedure are i n the results section . documented in this encounter Results CYTOPATHOLOGY (12/02/1999 0:00 EDT) Pathology Report: CYTOPATHOLOGY REPORT [facility] Reports generated via electronic interface contain zach ginal data; however they are lacking the format of the original re port. Caution should be taken when reading/interpreting unfo rmatted reports. Name: ? DONYA WHITESIDE ? Accession #: ? [id number] : ? 1960 (Age: 39) ??F ?Collect Date: ? 04/1999 Location: ? [facility] ? Receive Date : ? 12/06/1999 Provider: ?BRENDA CARDENAS MECHANICS HANDYMAN Copy to: ? Specimen/Source: ?ThinPrep Pap Test, Cervix/ Endocervix Last Menstrual Period: ? 11/27/99 ? SPECIMEN ADEQUACY ? Satisfactory for evaluation. GENERAL CATEGORIZATION ? Within Normal Limits ? Document reviewed and electronically signed by: ? CARLYLE Ceballos(ASCP) ? Report Date: ??12/07/1999 15:43 End of Report Specimen Performing Organization Address City/State/ZIP Code Phon e Number [facility] [address] [place] [address] SERVICES [facility] [address] [place] [address] documented in this encounter Visit Diagnoses Not on filedocumented in this encounter
--- OUTSIDE RECORDS SUMMARY | 2021-10-06 12:43 | XMS_ITS | Encounter Summary ---
:1960 Author Organization [facility] Address [address] [place] [address] Care Team Providers Name Role Phone Unknown, Provider Primary Care Provider Encounter Details Date Type Department Care Team Description 11/10/2016 Results Only [facility]- Brenda Haque, [facility] [phone] [facility] [place] [address] (Wo rk) Social History Tobacco Use Types Packs/Day Years Used Date Never Assessed Sex Assigned at Date Recorded Not on file documented as of this encounter Plan of Treatment Not on filedocumented as of this encounter Procedures Procedure Name Priority Date/Time Associated Diagnosis Comme nts PAP TEST- RESULT Routine 11/10/2016 0:00 EDT Resu lts for this ONLY procedure are i n the results section. documented in this encounter Results PAP TEST- RESULT ONLY (11/10/2016 0:00 EDT) Pathology Report: CYTOPATHOLOGY REPORT [facility] Reports generated via electronic interface contain zach ginal data; SERVICES however they are lacking the format of the original re port. Caution should be taken when reading/interpreting unfo rmatted reports. Name: ? DONYA WHITESIDE ? Accession #: ? [id number] ? : ? 1960 (Age: 56) ??F ?Collect Date: ? 11/10/2016 ? Location: ? [facility] ? Receive Date: ? 11/15/19 17 ? Provider: BRENDA CARDENAS LODGE ATTENDANT Copy to: PETRA FREEMAN SAS ADMINISTRATOR ? Final Report SPECIMEN ADEQUACY ? Satisfactory for Evaluation - transformation zone component present GENERAL CATEGORIZATION ? Negative for Intraepithelial Lesion or Malignan cy ?? Last Menstrual Period: 2014 Specimen/Source: ??Pap Test, Cervix, ThinPrep Imaging System with manual evaluation Document reviewed and electronically signed by: ? Maryellen Navas, [place](ASCP) ? Report ??Date: 11/21/2016 10:39 HPV with Pap Test ? Date Ordered: ? 11/21/2016 ? Status: ?? Signed Out ?Date Complete: ? 11/22/2016 ? By: ??Sy stem Interface ? Date Reported: ? 11/22/2016 ? Interpretation RESULT: Negative for HPV. No E6 or E7 mRNA is detected from HPV types 16,18,31,3 3,35, 39,45,51,52,56,58,59,66, and 68 by media services director media luis amplification. Comments Document reviewed and electronically signed by: ? System Interface ? Report date: 11/22/2016 By the signature above, the attending physician certif ies that he/she has personally conducted a gross and/or microscopic examin ation of the described specimens and rendered or confirmed the above diagnosi s. End of Report Specimen Performing Organization Address City/State/ZIP Code Phon e Number [facility] [address] [place] [address] SERVICES documented in this encounter Visit Diagnoses Not on filedocumented in this encounter Care Teams Television Production Assistant Relationship Specialty Start Date End Date Unknown, Provider, PCP - General 11/26/13 documented as of this encounter
--- OUTSIDE RECORDS SUMMARY | 2021-10-06 12:43 | XMS_ITS | Encounter Summary ---
:1960 Author Organization [facility] Address [address] [place] [address] Care Team Providers Name Role Phone Unavailable Primary Care Provider Unavailable Encounter Details Date Type Department Care Team Description 12/06/2007 Before PRISM [facility] - Brenda Mercado, Converted Visit Maple conversion COUNTY MANAGER (Maple) [address] [facility] [address] [place] [address] [place], [place] [phone] (Wo rk) Social History Tobacco Use Types Packs/Day Years Used Date Never Assessed Sex Assigned at Date Recorded Not on file documented as of this encounter Plan of Treatment Not on filedocumented as of this encounter Procedures Procedure Name Priority Date/Time Associated Diagnosis Comme nts CYTOPATHOLOGY Routine 12/06/2007 0:00 EDT Results for this procedure are i n the results section . documented in this encounter Results CYTOPATHOLOGY (12/06/2007 0:00 EDT) Pathology Report: CYTOPATHOLOGY REPORT ? RUDOLPH ALL EN ? LAB Reports generated via electr Hightower interface contain original data; ? however they are lacking the format of the original report. ? Caution should be taken when reading/interpreting unformatted reports. ? Name: ? DONYA WHITESIDE ? Accession #: ? [id number] ? : ? 1960 (Age: 47) ??F ?Collect Date: ? 12/06/2007 ? Location: ? [facility] ? Receive Date: ? 12/09/2007 ? Provider: ?BRENDA HAYG OOD COUNTY MANAGER ? Copy to: ? Specimen/Source: ? ThinPrep Pap Test, Cervix/Endocervix, processed on Cytyc ThinPrep Imaging System, wit h manual evaluation ? Last Menstrual Period: ? 8/4/08 ? Other: ? HPVA - HPV testing requested if ASC-US on the current ThinPrep Pap test. ? SPECIMEN ADEQUACY ? Satisfactory for Eval uation ? - transformation zone compon ent present ? GENERAL CATEGORIZATION ? Negative for Intraepi thelial Lesion or Malignancy ? Document reviewed and electr onically signed by: ? Lynan Xavier, CT(ASCP) ? Report Date: ??09/09/ 2008 16:36 ? End of Report ? Specimen Performing Organization Address City/State/ZIP Code Phon e Number [facility] [address] [place] [address] SERVICES [facility] [address] [place] [address] documented in this encounter Visit Diagnoses Not on filedocumented in this encounter
--- OUTSIDE RECORDS SUMMARY | 2021-10-06 12:43 | XMS_ITS | Encounter Summary ---
:1960 Author Organization [facility] Address [address] [place] [address] Care Team Providers Name Role Phone Unknown, Provider Primary Care Provider Encounter Details Date Type Department Care Team Description 09/18/2019 Lab Requisition [facility] Outr Resulting Lab, Pathology & Laboratory Provider [facility] [address] [place] [address] Social History Tobacco Use Types Packs/Day Years Used Date Never Assessed Sex Assigned at Date Recorded Not on file documented as of this encounter Plan of Treatment Not on filedocumented as of this encounter Procedures Procedure Name Priority Date/Time Associated Diagnosis Comme nts HCV RNA DETECT Routine 09/18/2019 10:40 Results f or this QUANT EDT procedure are i n the results section. HEPATITIS B CORE Routine 09/18/2019 10:40 Results for this ANTIBODY (TOTAL) EDT procedure a re in the results section. HEPATITIS B SURFACE Routine 09/18/2019 10:40 Resu lts for this ANTIBODY EDT procedure are i n the results section. HEPATITIS B SURFACE Routine 09/18/2019 10:40 Resu lts for this ANTIGEN EDT procedure are i n the results section. documented in this encounter Results HCV RNA DETECT QUANT (09/18/2019 10:40 EDT) Pathologist Sig nature HCV RNA Qualitative Undetected Undetected [facility] Specimen Blood - Venous blood (substance) Narrative [facility] - 09/19/2019 12:50 EDT The quantification range of this assay i s 15 IU/mL to 100,000,000 IU/mL. ??Testing was performed on the DOUG Ampliprep/COB TaqMan HCV v2.0 ([employer] Performing Organization Address City/State/ZIP Code Phon e Number [facility] [address] [place] [address] SERVICES HEPATITIS B SURFACE ANTIBODY (09/18/2019 10:40 EDT) Hep B Surface Ab, 10.5 See Note [facility] MEDICAL Quantitative Comment: mIU/mL [facility] LAB[facility]ORY Reference Range for Hep B Surface Ab, Quant: SERVICES Positive: >= 10.0 mIU/mL Negative: ??< 10.0 mIU/mL Patient is presumed to be immune to infection with Hep atitis B Virus. Hep B Surface Ab, Positive See Note [facility] MEDICAL Qualitative Comment: [facility]ENTER LABORATORY SERVICES Reference Range for Hep B Surface Ab, Qual: Unvaccinated: ??Negative Vaccinated: ??Positive Specimen Blood - Venous blood (substance) Performing Organization Address City/[facility]/ZIP Code Phon e Number [facility] [address] [place] [address] SERVICES HEPATITIS B CORE ANTIBODY (TOTAL) (09/18/2019 10:40 EDT) Pathologist Sig nature Hepatitis B Core Ab, Negative Negative [facility] Total LABORATORY SERVICES Specimen Blood - Venous blood (substance) Performing Organization Address City/[facility]/ZIP Code Phon e Number [facility] [address] [place] [address] SERVICES HEPATITIS B SURFACE ANTIGEN (09/18/2019 10:40 EDT) Pathologist Sig nature Hep B Surface Ag Negative Negative [facility] SERVICES Specimen Blood - Venous blood (substance) Performing Organization Address [facility]/ZIP [facility] Phon e Number [facility] [address] [place] [address] SERVICES documented in this encounter Visit Diagnoses Not on filedocumented in this encounter Care Teams Biological Technical Officer Relationship Specialty Start Date End Date Unknown, Provider, PCP - General 11/26/13 documented as of this encounter
--- OUTSIDE RECORDS SUMMARY | 2021-10-06 12:43 | XMS_ITS | Encounter Summary ---
:1960 Author Organization [facility] Address [address] [place] [address] Care Team Providers Name Role Phone Unknown, Provider Primary Care Provider Encounter Details Date Type Department Care Team Description 09/18/2019 Lab Requisition [facility] Outr Resulting Lab, Pathology & Laboratory Provider [facility] [address] [place], [place] [id number] Social History Tobacco Use Types Packs/Day Years Used Date Never Assessed Sex Assigned at Date Recorded Not on file documented as of this encounter Plan of Treatment Not on filedocumented as of this encounter Procedures Procedure Name Priority Date/Time Associated Comments Diagnosis EXTRACTABLE NUCLEAR Routine 09/18/2019 10:40 Resu lts for this ANTIGEN PANEL EDT procedure are in the results section. CCP ANTIBODIES Routine 09/18/2019 10:40 Results f or this EDT procedure are i n the results section. ANTI NUCLEAR AB Routine 09/18/2019 10:40 Results for this (PRAMOD), IFA EDT procedure are i n the results section. documented in this encounter Results EXTRACTABLE NUCLEAR ANTIGEN PANEL (09/18/2019 10:40 EDT) SSA Antibody 3.7 <20.0 Units [facility] Comment: LABORATORY SERVICES ? Negative: <20.0 Units ? Weak Positive: 20.0 - 39.9 Units ? Moderate Positive: 40.0 - 80.0 Unit s ? Strong Positive: >80.0 Units Results were obtained with [employer] Lite SS-A MELISSA. ??SS-A values obtained with different manufacturers' assay methods may not be used interchangeably. ??The magnitude of the reported IgG levels cannot be correlated to an endpoint titer. SSB Antibody 4.0 <20.0 Units [facility] Comment: LABORATORY ? Negative: <20.0 Units SERVICES ? Weak Positive: 20.0 - 39.9 Units ? Moderate Positive: 40.0 - 80.0 Unit s ? Strong Positive: >80.0 Units Results were obtained with [employer] Lev[employer]re SS-B MELISSA. ??SS-B values obtained with different manufacturers' assay methods may not be used interchangeably. ??The magnitude of the reported IgG levels cannot be correlated to an endpoint titer. SM ([place]) 4.4 <20.0 Units [facility] Antibody Comment: LABORATORY ? Negative: <20.0 Units SERVICES ? Weak Positive: 20.0 - 39.9 Units ? Moderate Positive: 40.0 - 80.0 Unit s ? Strong Positive: >80.0 Units Results were obtained with [employer] Lev[employer]re Sm MELISSA. ??Sm values obtained with different manufacturers' assay methods may not be used interchangeably. ??The magnitude of the reported IgG levels cannot be correlated to an endpoint titer. CHAIN PEGGER Antibody 7.2 <20.0 Units [facility] Comment: LABORATORY SERVICES ? Negative: <20.0 Units ? Weak Positive: 20.0 - 39.9 Units ? Moderate Positive: 40.0 - 80.0 Unit s ? Strong Positive: >80.0 Units Results were obtained with [employer] Lev[employer]re CHAIN PEGGER MELISSA. CHAIN PEGGER values obtained with different batch maker's assay methods may not be used interchangeaby. ??The magnitude of the reported IgG levels cannot be be correlated to an endpoint titer. A positive result in the [employer] Lite CHAIN PEGGER MELISSA indicates the presence of antibodies reactive with the CHAIN PEGGER/Sm complex but cannot distinguish between anti- Sm and anti-CHAIN PEGGER activity. Specimen Blood - Venous blood (substance) Performing Organization Address City/State/ZIP Code Phon e Number [facility] [address] [place] [address] SERVICES ANTI NUCLEAR AB (PRAMOD), IFA (09/18/2019 10:40 EDT) Pathologist Sig nature PRAMOD Interpretation Negative Negative [facility] SERVICES Specimen Blood - Venous blood (substance) Narrative [facility] - 09/19/2019 14:41 EDT Results were obtained with the [employer] NOV A Lite HEp-2 PRAMOD Kit by indirect immunofluorescence. Performing Organization Address City/State/ZIP Code Phon e Number [facility] [address] [place] [address] SERVICES CCP ANTIBODIES (09/18/2019 10:40 EDT) Pathologist Sig nature CCP Antibodies <2.5 <5.0 U/mL [facility]AT [place] SERVICES Specimen Blood - Venous blood (substance) Performing Organization Address City/[facility]/ZIP Code Phon e Number [facility] [address] [place] [address] SERVICES documented in this encounter Visit Diagnoses Not on filedocumented in this encounter Care Teams Strategic Consultant Relationship Specialty Start Date End Date Unknown, Provider, PCP - General 11/26/13 documented as of this encounter
--- OUTSIDE RECORDS SUMMARY | 2021-10-06 12:43 | XMS_ITS | Encounter Summary ---
:1960 Author Organization [facility] Address [address] [place] [address] Care Team Providers Name Role Phone Unavailable Primary Care Provider Unavailable Encounter Details Date Type Department Care Team Description 06/16/2003 Results Only [facility] - Cheyanne Hickman od, Brenda Rosenthal, RADIOLOGY EQUIPMENT SERVICER conversion [address] [place] [phone] (Wo rk) Social History Tobacco Use Types Packs/Day Years Used Date Never Assessed Sex Assigned at Date Recorded Not on file documented as of this encounter Plan of Treatment Not on filedocumented as of this encounter Procedures Procedure Name Priority Date/Time Associated Diagnosis Comme nts CYTOPATHOLOGY Routine 06/16/2003 0:00 EST Results for this procedure are i n the results section . documented in this encounter Results CYTOPATHOLOGY (06/16/2003 0:00 EST) Pathology Report: CYTOPATHOLOGY REPORT [facility] Reports generated via electronic interface contain zach ginal data; however they are lacking the format of the original re port. Caution should be taken when reading/interpreting unfo rmatted reports. Name: ? DONYA WHITESIDE ? Accession #: ? [id number] : ? 1960 (Age: 43) ??F ?Collect Date: ? 05/31 Location: ? [facility] ? Receive Date : ? 06/18/2003 Provider: ?BRENDA CARDENAS RADIOLOGY EQUIPMENT SERVICER Copy to: ? Specimen/Source: ?ThinPrep Pap Test, Cervix/ Endocervix Last Menstrual Period: ? 05/18/03 ? SPECIMEN ADEQUACY ? Satisfactory for Evaluation - transformation zone component present GENERAL CATEGORIZATION ? Negative for Intraepithelial Lesion or Malignan cy ? Document reviewed and electronically signed by: ? Lauren Diaz, SCT(ASCP) ? Report Date: ??06/24/2003 10:49 End of Report Specimen Performing Organization Address City/State/ZIP Code Phon e Number [facility] [address] [place] [address] SERVICES [facility] [address] [place] [address] documented in this encounter Visit Diagnoses Not on filedocumented in this encounter
--- OUTSIDE RECORDS SUMMARY | 2021-10-06 12:43 | XMS_ITS | Encounter Summary ---
:[address] [facility] Address [address] [place] [address] Care Team Providers Name Role Phone Unavailable Primary Care Provider Unavailable Encounter Details Date Type Department Care Team Description 12/07/2000 Results Only [facility] - Cheyanne Hickman od, Brenda Rosenthal, RADIATION THERAPY TECHNICIAN conversion [address] [place] [phone] (Wo rk) Social History Tobacco Use Types Packs/Day Years Used Date Never Assessed Sex Assigned at Date Recorded Not on file documented as of this encounter Plan of Treatment Not on filedocumented as of this encounter Procedures Procedure Name Priority Date/Time Associated Diagnosis Comme nts CYTOPATHOLOGY Routine 12/07/2000 0:00 EDT Results for this procedure are i n the results section . documented in this encounter Results CYTOPATHOLOGY (12/07/2000 0:00 EDT) Pathology Report: CYTOPATHOLOGY REPORT [facility] Reports generated via electronic interface contain zach ginal data; however they are lacking the format of the original re port. Caution should be taken when reading/interpreting unfo rmatted reports. Name: ? DONYA WHITESIDE ? Accession #: ? [id number] : ? 1960 (Age: 40) ??F ?Collect Date: ? 09/2000 Location: ? [facility] ? Receive Date : ? 12/12/2000 Provider: ?BRENDA CARDENAS RADIATION THERAPY TECHNICIAN Copy to: ? Specimen/Source: ?ThinPrep Pap Test, Cervix/ Endocervix Last Menstrual Period: ? 12/04/00 ? SPECIMEN ADEQUACY ? Satisfactory for evaluation. GENERAL CATEGORIZATION ? Within Normal Limits ? Document reviewed and electronically signed by: ? Lilia Wilburn [facility](ASCP) ? Report Date: ??12/13/2000 15:03 End of Report Specimen Performing Organization Address City/State/ZIP Code Phon e Number [facility] [address] [place] [phone] SERVICES [facility] [address] [place] [address] documented in this encounter Visit Diagnoses Not on filedocumented in this encounter
== END 2021-10-06 12:39 | disposition home or self-care (01) ==
LOC: LBN 12:38
PROVIDERS: Visit Provider Nurse Practitioner Family
DX: Z12.4 Encounter for screening for malignant neoplasm of cervix (principal); Z11.51 Encounter for screening for human papillomavirus (HPV)
CPT/HCPCS: 88142; 87624

== ENCOUNTER 2021-11-08 03:02 | Outpatient (CLI) | payer OTHER, SELFPAY ==
[2021-11-08 07:29] LABS: Abs Immature Grans 0.01 10^3/uL (0.0-0.06); Absolute Basophil Count 0.04 10^3/uL (0.0-0.2); Absolute Eosinophil Count 0.12 10^3/uL (0.0-0.7); Absolute Lymphocyte Count 1.27 10^3/uL (1.2-3.4); Absolute Monocyte Count 0.32 10^3/uL (0.1-0.8); Absolute Neutrophil Count 2.19 10^3/uL (1.2-6.7); HCT 32.7 % (36.0-46.0); HGB 9.6 g/dL (11.2-15.7); Immature Grans % 0.3; Lymphocytes % 32.2; MCH 21.5 pg (27.0-33.0); MCHC 29.4 % (32.0-36.0); MCV 73 fL (80-95); MPV 9.3 fL (8.0-11.0); Monocytes % 8.1; Neutrophils % 55.4; Platelet Count 286 10^3/uL (130-400); RBC 4.47 10^6/uL (3.93-5.22); RDW-SD 44.7 fL; WBC 3.95 10^3/uL (4.4-10.8)
[2021-11-08 07:50] LABS: ESR 3 mm/hr (0-30)
[2021-11-08 07:52] LABS: Diff Comment RBC Morph Reviewed
--- NOTE | 2021-11-08 07:52 | DI.RAD_ITS ---
Exam(s) XR FOOT RT COMPLETE EXAM: XR FOOT RT COMPLETE CLINICAL HISTORY: INFLAMMATORY ARTHRITIS, M19.90,CHONDROCALCINOSIS, M11.20. TECHNIQUE: 2D digital imaging was performed. Three views. COMPARISON: CR XR FOOT LT COMPLETE from 11/08/2021 FINDINGS: BONES: No acute fracture is present. No bony destructive lesion is seen. Heel spur. JOINTS: No dislocation present. Mild intertarsal degenerative changes. SOFT TISSUE: Normal. IMPRESSION: Mild degenerative changes and heel spur. DATA REPOSITORY: RADIATION DOSE DELIVERED:
--- NOTE | 2021-11-08 07:52 | DI.RAD_ITS ---
Exam(s) XR CERVICAL SP HILL TRAUMA 2-3V EXAM: XR CERVICAL SP HILL TRAUMA 2-3V CLINICAL HISTORY: C SPINE PAIN, M54.2,INFLAMMATORY ARTHRITIS, M19.90. TECHNIQUE: 2D digital imaging was performed. Three views. COMPARISON: No exams were available for comparison FINDINGS: BONES: No fracture or destructive lesion. No bony erosions. No a dont oil erosion. DISKS: There is mild narrowing of the C3-4 and C4-5 disc spaces and moderate narrowing of the C6-7 di sc space. There are small endplate osteophytes. There are mild facet degenerative changes. ALIGNMENT: Cervical spinal alignment is within normal limits. The odontoid and atlantoaxial articulat ions are normal. SOFT TISSUE: Normal. The lung apices are clear. IMPRESSION: Bmui-qu-dikkvzpn degenerative changes. DATA REPOSITORY: RADIATION DOSE DELIVERED:
--- NOTE | 2021-11-08 07:52 | DI.RAD_ITS ---
Exam(s) XR ARTHRITIS SERIES EXAM: XR ARTHRITIS SERIES CLINICAL HISTORY: INFLAMMATORY ARTHRITIS, M19.90,LT HAND PAIN, M79.642,RT HAND PAIN, M79.641. TECHNIQUE: 2D digital imaging was performed. Two views of both hands. COMPARISON: CR XR ARTHRITIS SERIES from 09/18/2019 FINDINGS: BONES: No acute fracture is present. No bony destructive lesion is seen. JOINTS: No dislocation present. Mild degenerative changes of the interphalangeal joints and 1st carp al metacarpal joint. SOFT TISSUE: Normal. IMPRESSION: Minimal degenerative changes.. no bony erosions. DATA REPOSITORY: RADIATION DOSE DELIVERED:
--- NOTE | 2021-11-08 07:52 | DI.RAD_ITS ---
Exam(s) XR FOOT LT COMPLETE EXAM: XR FOOT LT COMPLETE CLINICAL HISTORY: INFLAMMATORY ARTHRITIS, CHONDROCALCINOSIS. TECHNIQUE: 2D digital imaging was performed. Three views. COMPARISON: CR XR FOOT LT COMPLETE from 01/23/2020 FINDINGS: BONES: No acute fracture is present. No bony destructive lesion is seen. Prominent plantar calcaneal spur. Small spur dorsal aspect of navicular. JOINTS: No dislocation present. Minimal degenerative changes. SOFT TISSUE: Normal. IMPRESSION: Heel spur. No erosive bony changes. DATA REPOSITORY: RADIATION DOSE DELIVERED:
[2021-11-08 07:53] LABS: Microcytosis 2+
[2021-11-08 07:56] LABS: ALT 26 U/L (14-59); AST 17 U/L (15-37); Alkaline Phosphatase 59 U/L (46-116); Anion Gap 9.2 mmol/L (3-11); BUN 12 mg/dL (7-18); Bilirubin, Total 0.2 mg/dL (0.2-1.0); CO2 27.8 mmol/L (21.0-32.0); CREATININE 0.8 mg/dL (0.55-1.02); Calcium 8.9 mg/dL (8.5-10.1); Chloride 104 mmol/L (98-107); Glucose 95 mg/dL (74-106); Potassium 3.9 mmol/L (3.5-5.1); Sodium 141 mmol/L (136-145); Total Protein 7.2 g/dL (6.4-8.2)
[2021-11-08 08:06] LABS: C-Reactive Protein 0.14 mg/dL (0.0-0.3)
[2021-11-08 18:18] LABS: Rheumatoid Factor <8.6 IU/mL (<12.0)
[2021-11-09 08:48] LABS: Cyclic Citrullinated Peptide <2.5 U/mL (<5.0)
[2021-11-09 16:23] LABS: G6PD Enzyme Activity 13.8 U/g Hb (8.0 - 11.9)
== END 2021-11-08 03:03 | disposition home or self-care (01) ==
LOC: LBO 03:03
PROVIDERS: Visit Provider Physician Assistant Medical
DX: M77.31 Calcaneal spur, right foot; M19.90 Unspecified osteoarthritis, unspecified site; M43.12 Spondylolisthesis, cervical region; M77.32 Calcaneal spur, left foot
CPT/HCPCS: 36415; 80053; 82955; 85652; 86200; 72040; 73120; 73630; 85025; 86140; 86431

== ENCOUNTER 2022-01-05 02:22 | Outpatient (CLI) | payer OTHER, SELFPAY ==
[2022-01-05 07:35] LABS: HCT 32.8 % (36.0-46.0); HGB 9.9 g/dL (11.2-15.7); MCH 21.3 pg (27.0-33.0); MCHC 30.2 % (32.0-36.0); MCV 71 fL (80-95); MPV 9.2 fL (8.0-11.0); Platelet Count 290 10^3/uL (130-400); RBC 4.64 10^6/uL (3.93-5.22); WBC 4.98 10^3/uL (4.4-10.8)
[2022-01-05 07:36] LABS: Reticulocyte 1.1 % (0.5-2.4)
[2022-01-05 08:32] LABS: Iron 36 ug/dL (50-170); Total Iron Binding Capacity 441 ug/dL (250-450); Transferrin Sat 8 % (15-50)
[2022-01-05 08:52] LABS: Folate 14.7 ng/mL (8.6-20.0)
[2022-01-05 08:59] LABS: ALT 24 U/L (14-59); AST 18 U/L (15-37); Alkaline Phosphatase 67 U/L (46-116); Anion Gap 10.4 mmol/L (3-11); BUN 18 mg/dL (7-18); Bilirubin, Total 0.2 mg/dL (0.2-1.0); CO2 24.6 mmol/L (21.0-32.0); Calculated LDL 103 mg/dL (<100); Chloride 103 mmol/L (98-107); Cholesterol 171 mg/dL (<200); Ferritin 9 ng/mL (8-252); Glucose 102 mg/dL (74-106); HDL Cholesterol 45 mg/dL (40-60); Potassium 4.1 mmol/L (3.5-5.1); Sodium 138 mmol/L (136-145); TSH 2.84 uIU/mL (0.36-3.74); Total Protein 7.3 g/dL (6.4-8.2); Triglyceride 117 mg/dL (<150); Vitamin B12 227 pg/mL (193-986)
== END 2022-01-05 02:23 | disposition home or self-care (01) ==
LOC: LBO 02:22
PROVIDERS: Nurse Practitioner; Visit Provider Physician Assistant Medical
DX: E66.9 Obesity, unspecified (principal); K21.9 Gastro-esophageal reflux disease without esophagitis; D64.9 Anemia, unspecified
CPT/HCPCS: 36415; 80053; 80061; 85027; 82607; 82728; 82746; 83540; 83550; 84443; 85045

== ENCOUNTER 2022-02-13 06:42 | Day surgery (SDC) | payer OTHER, SELFPAY ==
--- NOTE | 2022-02-13 06:14 | COLE_ITS ---
Date of service: 02/13/22 Time of Service: 08:37 Colonoscopy Report Date of procedure: 02/13/22 Pre-op diagnosis general: Anemia Post-op diagnosis procedure note: same (Hiatal Hernia, diverticulosis and internal hemorrhoids) Procedure: 1. EGD with biopsies 2. Colonoscopy Surgeon: Roya Miranda Anesthesia Type: General:No Airway Estimated blood loss (mL): 2 Pathology: other (duodenal polyp) Complications: None Disposition: same day Indications: The patient? is a pleasant ? 61-year-old female who is here to discuss a colonoscopy and EGD for anemia. ? She denies any changes in bowel habits, melena, hematochezia, unintentional weight loss or family history of colon cancer.? The procedure and risks were discussed.? The prep was reviewed in detail.? Risks, benefits and complications have been reviewed. Complications include but are not limited to bleeding, pain, perforation, missed small lesion/polyp, sore throat, aspiration and adverse reaction to the medications. Questions were entertained and answered to their satisfaction and they wished to proceed. No guarantees were given or implied. Prep: Miralax/Dulcolax Procedure Start Time: :14 Procedure End Time: :37 Retraction Time: 9 minutes Procedure Description: After informed consent was obtained the patient was take to the procedure room and placed in a supine position. Monitors were applied and a time out was done. The patients name, date of , procedure type, allergies to medications and metal in their body was reviewed. A bite block was placed and the patient was sedated. Once sedated and comfortable the gastroscope was advanced through the oropharynx which was grossly normal into the esophagus. The proximal and mid- esophagus were normal. In the distal esophagus there was no inflammation noted. The scope was advanced into the stomach and through the pylorus into the 3rd portion of the duodenum. The duodenum was noted to be normal. There was what appeared to be a small polyp in the 1st portion of the duodenum which was removed. The scope was retracted back into the stomach. There was no inflammation noted. The scope was retro-flexed. The cardia and fundus were noted to be normal. There was a 5 cm hiatal hernia noted. The scope was retracted back into the esophagus and biopsies were done of the GE junction to rule out Payan's. The Z line was regular. The GE junction was at 30 cm. While the patient was still sedated they were placed in a left decubitous p osition. A rectal exam was done. External exam was normal. Internal exam revealed a normal sphincter tone and no palpable masses. . The scope was then introduced and retro-flexed. Grade 1 and 2 internal hemorrhoids were noted. No masses or polyps were identified on retroflexion. The scope was then advanced to the cecum without difficulty. The ileocecal valve and appendiceal orifice were identified. The prep was good. The scope was then slowly retracted over 9 minutes back into the rectum. There were no polyps and no bleeding. There was moderate diverticulosis noted in the entire colon. The scope was removed and the patient was woken up and taken back to Same day surgery in stable condition. The patient tolerated the procedure well and there were no immediate complications. * If there is continued concern about the anemia being from a GI source recommend referal to [facility] for [facility] [place]*
--- NOTE | 2022-02-13 06:15 | PDOC.DSDIS_ITS ---
Date of service: 02/13/22 Time of Service: 08:44 Discharge Plan Disposition Patient Disposition: HOME Condition: Good Discharge Details Reason For Visit: anemia Attending Provider: Roya Miranda Primary Care Provider: Marisa Interiano Home Meds and New Rx's Prescriptions: Continued celecoxib [Celebrex] 200 mg capsule 200 mg PO BID Qty: 180 3RF hydroxychloroquine 200 mg tablet 200 mg PO BID Qty: 180 3RF Rx Instructions: 01/22/20 prescribed by [facility] [place] [facility] [place] rizatriptan 5 mg tablet 5 mg PO PRN Qty: 30 3RF Rx Instructions: prn DUNN; may take up to 30 mg per 24h fluticasone propionate [Allergy Relief (fluticasone)] 50 mcg/actuation spr ay,suspension 2 spray intranasal DAILY Qty: 48 3RF Rx Instructions: administer into each nostril modafinil [Provigil] 100 mg tablet 100 mg PO DAILY Qty: 90 0RF Rx Instructions: Take 1 hour prior to lift driver. methocarbamol 500 mg tablet 500 mg PO TID PRN (Reason: muscle spasm) Qty: 90 3RF omeprazole 40 mg capsule,delayed release(DR/EC) 40 mg PO BID Qty: 180 3RF Rx Instructions: 01/22/17 Dr. Howe, ENT [facility] nystatin 100,000 unit/gram powder 1 applic topical BID PRN Discharge Instructions Instructions: Hiatal Hernia (DC), Diverticulosis (DC), Hemorrhoids (DC) Additional Instructions: Findings: Duodenal polyp- looked benign Hiatal hernia Internal hemorrhoids and diverticulosis *There was no signs of bleeding. Recommend following up with your PCP. If there is continued concern about a GI source for the anemia then rec ommend a capsule endoscopy at [facility] [place] Follow up: 10 years for next colonoscopy Please call if you develop: fevers >101.5 Nausea or Vomiting Abdominal pain that is not transient Rectal bleeding that is more then a tbsp A hard abdomen and inability to pass gas DAY SURGERY UNIT POST ENDOSCOPY INSTRUCTIONS Instructions for everyone who is given Anesthesia: For your safety, please do the following for the next 24 Hours: a. Do not drive or operate dangerous equipment b. Do not drink alcohol beverages or use any recreational drugs for the first 24 hours or while taking pain medications. The medications in your body may have a reaction that can be dangerous. c. Do not make any important decisions or sign any important papers 1. Generally there are no restrictions on your activity after a day or so has gone by, but you may feel a bit fatigued for a few days. 2. After you arrive home you may have a light meal and return to a normal diet as you can tolerate it without feeling sick to your stomach. 3. After surgery, you may feel pain or discomfort. This should be only transient, but if it persists please contact your doctor. 4. If there are any questions regarding the findings of your procedure, please feel free to contact your doctor. 6. If you are unable to contact your doctor with a problem, contact the hospital at [phone]. 7. Continue all your regular medications unless directed otherwise. I understand the above instructions and have no questions. Signature of Patient or Responsible Adult Escort Date/Time Name of Responsible Adult Escort Signature of Nurse Date/Time Activity:: Activity as Tolerated Diet:: high fiber diet Discharge Orders Discharge Orders: Discharge Order (Routine); Ordered 02/13/22 Ordered By: Roya Miranda
[2022-02-13 07:09] VITALS: BP 141/78; PULSE 90; RESP 16; TEMP 36.4; O2SAT 98
[2022-02-13] MEDS: Lactated Ringers 1,000 ML 80 ML IV (07:15)
--- NOTE | 2022-02-13 07:34 | W.ANESPRE ---
General Info Date of Service Date Performed: 02/13/22 Height: 5 ft 2 in Weight: 92.9 kg Body Mass Index (BMI): 37.4 Surgical Procedure: Operation Date: 02/13/22 08:20 Proposed Procedure Side Surgeon p Colonoscopy/Gastroscopy Roya Miranda MD Meds Allergies and Home Medications Allergies Allergy/AdvReac Type Severity Reaction Status Date / Time codeine Allergy Intermediate HIVES Verified 02/13/22 07:06 oxycodone HCl [From Tylox] Allergy Intermediate HIVES Verified 02/13/22 07:06 promethazine HCl Allergy Intermediate BIZARRE Verified 02/13/22 07:06 [From Phenergan] BEHAVIOR erythromycin base AdvReac Intermediate ABDOMINAL Verified 02/13/22 07:06 PAIN, VOMITING topiramate AdvReac Intermediate dizzy, Verified 02/13/22 07:06 tachycardia Home Medication Medication Instructions Recorded methocarbamol 500 mg tablet 500 mg PO TID PRN muscle spasm #90 03/08/21 tabs omeprazole 40 mg capsule,delayed 40 mg PO BID #180 tab-caps 04/11/21 release celecoxib 200 mg capsule (Celebrex) 200 mg PO BID #180 caps 05/25/21 hydroxychloroquine 200 mg tablet 200 mg PO BID #180 tabs 05/25/21 fluticasone propionate 50 2 spray intranasal DAILY #48 grams 09/29/21 mcg/actuation nasal spray,suspension (Allergy Relief (fluticasone)) rizatriptan 5 mg tablet 5 mg PO PRN #30 tab-caps 09/29/21 modafinil 100 mg tablet (Provigil) 100 mg PO DAILY shift work 12/29/21 disorder #90 tabs nystatin 100,000 unit/gram topical 1 applic topical BID PRN 02/10/22 powder Current Visit Medications: Current Medications Generic Name Dose Route Start Last Admin Trade Name Freq PRN Reason Stop Dose Admin Hyoscyamine Sulfate 0.125 mg 02/13/22 06:16 Hyoscyamine 0.125 Mg Sl/Oral/Chew SL DIRECTED PRN Ringer's Solution 1,000 mls @ 80 mls/hr 02/13/22 06:00 02/13/22 07:15 IV 80 mls/hr INFUSION JORDAN Administration Ondansetron HCl 4 mg 02/13/22 06:16 Ondansetron 4 Mg/2 Ml Vial IVP Q4H PRN PRN Nausea / Vomiting PFSH Active Problems Active Problems: Problem Status Onset Code Allergic rhinitis, unspecified 08/02/11 J30.9 Generalized osteoarthrosis 08/02/11 M15.9 Insomnia 01/24/17 G47.00 Routine gynecological examination 03/11/13 Z01.419 Vocal cord polyp 01/24/17 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 Brother has like psychosis with anesthesia. Surgical History Surgical History section X 3 Laryngoscopy, Tumor Excision (02/13/17) [facility] [place] Ligation of fallopian tube X5 Tobacco Smoking/Tobacco Use Status: Never Alcohol Alcohol Intake: current Alcohol intake frequency: holidays/special occasions only Substance Use Substance use: Never Substance use type: does not use Vital Signs and Lab Results Vital Signs Most Recent Vital Signs in EMR: Most Recent Vital Signs Temp Pulse Resp BP Pulse Ox 36.4 C L 90 16 141/78 H 98 02/13/22 07:09 02/13/22 07:09 02/13/22 07:09 02/13/22 07:09 02/13/22 07:09 Lab Results Blood Type / Crossmatch: No Data to Display Complete Blood Count: No Data to Display Complete Metabolic Panel: No Data to Display Liver Function Panel: No Data to Display Coagulation Panel: No Data to Display Cardiac Panel: No Data to Display Arterial Blood Gas: No Data to Display Venous Blood Gas: No Data to Display Pancreas Panel: No Data to Display Thyroid Panel: No Data to Display Infectious Disease: No Data to Display Blood Cultures: No Data to Display Toxicology Panel: No Data to Display Anesthesia Assessment and Plan Anesthesia History Personal History: No History of Anesthesia Complications Family History: Other (Brother psychosis) Exercise Tolerance Exercise Tolerance: Metabolic Equivalents>4 Pertinent Negatives Pertinent Negatives: No Symptoms of GERD (Controlled with meds), No Major Cardiovascular Symptoms or Complaints, No Major Pulmonary Symptoms or Complaints and No History of CVA/TIA Cardiac & Pulmonary Exam Cardiac Exam: Normal S1/S2 Heart Sounds Pulmonary Exam: Clear Bilateral Breath Sounds Implantable Cardiac Device Does patient have a Pacemaker or an ICD?: No Airway Exam Known Difficult Airway: No Mallampati Class: 3 Mouth Opening: Normal (> 3cm) Thyromental Distance: Greater than 3 cm Neck Range of Motion: Limited ROM (Sees chiropractor, good extension) Neck Circumference: Thick (Short neck) Teeth Condition: Normal Dentition ASA Classification ASA Score: ASA 2 Emergency Case?: No NPO Status NPO Status: NPO Clears >2 hours, Solids >8 hours Anesthesia Plan Resuscitation Status: Full Code Anesthesia Technique: General Anesthesia Airway Planned: Natural Airway Monitors Used: Standard Monitors
[2022-02-13 08:08] VITALS: BMI 37.4
--- NOTE | 2022-02-13 08:16 | BOWEL_PTH ---
PATIENT: Donya Whiteside LOC: [facility] U#:[id number] AGE/SX: 61/F ROOM: RE02/13/[address]: Roya Miranda MD : 1960 BED: DIS: 02/13/2022 SPEC #: [id number] RECD: 02/13/22 12:50 STATUS: FRANCISCO RESeferino #: [id number] RANDEE: 02/13/22 08:[address]: Roya Miranda DEPT: Surgical Specimen RECD BY: Niki Power ENTERED: 02/13/22 12:50 SP TYPE: Bowel OTHR DR: Marisa Interiano APRN Tissues: 1 - BIOPSY BOWEL Procedures: GROSS AND MICRO LEVEL 4 Comments: [id number]
[2022-02-13 08:42] VITALS: BP 114/74; PULSE 87; RESP 18; TEMP 36.4; O2SAT 94
[2022-02-13 09:13] VITALS: PULSE 86; RESP 98; TEMP 36.6; O2SAT 18
--- NOTE | 2022-02-13 13:26 | W.ANESPOSTOP ---
Postoperative Evaluation Date, Time and Location Date Performed: 02/13/22 Time Performed: 09:13 Patient Location: Day Surgery Unit Vital Signs Most Recent Imported Vital Signs: Most Recent Vital Signs Temp Pulse Resp BP Pulse Ox 36.6 C 86 98 H 114/74 18 L 02/13/22 09:13 02/13/22 09:13 02/13/22 09:13 02/13/22 08:42 02/13/22 09:13 Pain Score Most Recent Pain Score: Most Recent Pain Score Pain Level 1 02/13/22 09:13 Assessment Mental Status: Awake (Alert & Oriented to Patient Baseline) Airway and Respiratory Function: Patent airway with normal (patient baseline) respiratory exam Cardiovascular Function: Hemodynamically Stable Hydration Status: Adequately Hydrated Nausea & Vomiting: No Nausea or Vomiting Pain: Pain is tolerable per patient Peripheral Nerve Block: Patient did not receive a nerve block
== END 2022-02-13 09:24 | disposition home or self-care (01) ==
LOC: SUR 06:43
PROVIDERS: PCP Nurse Practitioner; Visit Provider Surgery
PROC: (CPT 43239; principal; 2022-02-13 08:15)
DX: D64.9 Anemia, unspecified (principal); K57.30 Diverticulosis of large intestine without perforation or abscess without bleeding; K44.9 Diaphragmatic hernia without obstruction or gangrene; K31.7 Polyp of stomach and duodenum; K64.0 First degree hemorrhoids; K64.1 Second degree hemorrhoids
CPT/HCPCS: 43239; 45378; 88305; J2405

== ENCOUNTER 2022-03-31 03:16 | Outpatient (CLI) | payer OTHER, SELFPAY ==
[2022-03-31 09:54] LABS: Vitamin D 25 Total 16.4 ng/mL (30-100)
[2022-04-03 10:37] LABS: Lyme Ab w Rflx to Lyme Confirm Negative (Negative)
[2022-04-03 15:16] LABS: ANA Interpretation Negative (Negative)
[2022-04-03 16:54] LABS: Anaplasma phagocytophilum Negative (Negative); B. miyamotoi PCR Negative (Negative); Babesia divergens/MO-1 Negative (Negative); Babesia duncani Negative (Negative); Babesia microti Negative (Negative); Ehrlichia chaffeensis Negative (Negative); Ehrlichia ewingii/canis Negative (Negative); Ehrlichia muris eauclairensis Negative (Negative)
== END 2022-03-31 03:17 | disposition home or self-care (01) ==
LOC: LBO 03:17
PROVIDERS: PCP Nurse Practitioner; Visit Provider Nurse Practitioner
DX: E55.9 Vitamin D deficiency, unspecified (principal); M25.59 Pain in other specified joint; D64.9 Anemia, unspecified; M54.16 Radiculopathy, lumbar region; M54.6 Pain in thoracic spine; R53.83 Other fatigue
CPT/HCPCS: 36415; 82306; 87798; 86038; 86618

== ENCOUNTER 2022-04-20 03:36 | Outpatient (CLI) | payer OTHER, SELFPAY ==
--- NOTE | 2022-04-20 06:45 | DI.MRI_ITS ---
Exam(s) MR LUMBAR SPINE WO EXAM: MR LUMBAR SPINE WO CLINICAL HISTORY: pain, weakness legs, back pain,RADICULOPATHY,M54.50,M54.10,R29.898. TECHNIQUE: Multiplanar multisequence MRI of the Lumbar spine was performed. COMPARISON: None FINDINGS: Five lumbar vertebrae are presumed. Conus medullaris is at normal level. There is no evidence of conus mass nor subjacent clumping of in trathecal nerve roots to suggest arachnoiditis. The distal thecal sac appears unremarkable.There is no evidence of Tarlov intrasacral cysts nor other significant findings within the sacral canal Bones:There are no fractures nor ominous osseous lesions in the lumbar vertebral bodies and visualize d sacrum. With respect to the individual levels... T12-L1: Unremarkable L1-2: Normal disc height and signal. No disc herniation nor central canal stenosis.No foraminal steno sis L2-3: Normal disc height. No disc herniation nor central canal stenosis.No foraminal stenosis.No face t arthropathy. L3-4: Mild decreased disc height. Maneuver bulging. No dominant disc herniation. Central canal dim ensions are normal. No facet arthropathy. No significant foraminal stenosis. L4-5: This level exhibits mild-moderate uniform disc height loss and vacuum phenomenon within the jose tral disc space. Posteriorly there is a large central subligamentous disc herniation which significa ntly compresses the anterior aspect of the thecal sac. This disc protrusion extends posteriorly 7 mi llimeters and is approximately 9 millimeters wide. It elevates the posterior longitudinal ligament. There is no extension into the exiting right neural foramen which is nicely patent at this level. O n the left side there is some annular bulging in the floor of the exiting left neural foramen with mi ld left-sided foraminal stenosis. There is mild degenerative change in the facet joints at this leve l. L5-S1: Mild disc space narrowing evident. No disc herniation. No central canal stenosis. Disc spac e narrowing is slightly more prominent on the right side. Mild right-sided foraminal stenosis. Mode rate degenerative changes in the facet joints evident bilaterally. Soft tissues: paraspinal soft tissues appear unremarkable. IMPRESSION: 1. The main finding here is at the L4-5 level where there is a prominent central disc protrusion exte nding posteriorly 7 millimeters and approximately 9 millimeters wide, this significantly indenting th e thecal sac at this level resulting in element of central canal stenosis. There is mild left-sided foraminal stenosis at this level. 2. Mild right-sided foraminal stenosis noted at L5-S1 level. 3. Other findings as above. DATA REPOSITORY:
--- NOTE | 2022-04-20 06:45 | DI.MRI_ITS ---
Exam(s) MR THORACIC SPINE WO EXAM: MR THORACIC SPINE WO CLINICAL HISTORY: pain, weakness legs, back pain,M54.6,M54.10,R29.898 TECHNIQUE: Multiplanar multisequence MRI of the thoracic spine was performed without intravenous con trast. COMPARISON: MR MR LUMBAR SPINE WO from 04/20/2022 FINDINGS: OSSEOUS: There are no acute appearing thoracic vertebral fractures. There are no ominous osseous les ions in the thoracic vertebrae. THORACIC SPINAL CORD: There is no abnormal signal in the cervical spinal cord and no evidence of foca l cord atrophy nor focal cord swelling. There is no evidence of syringomyelia nor significant spinal cord dysraphism. There is no evidence of mass at the conus medullaris. The position of the conus me dullaris is at T12-L1 level. SIGNIFICANT INDIVIDUAL LEVEL FINDINGS: T6-T7: Small disc protrusion right of center T7-T8: Small disc protrusion posterolateral right of center PARASPINAL TISSUES: Large hiatal hernia noted. IMPRESSION: 1. Mild findings as above. 2. Most significant finding this patient is is at the L4-5 level in the lumbosacral spine where there is a prominent disc protrusion. 3. There appears to be a large hiatal hernia. DATA REPOSITORY:
== END 2022-04-20 03:56 ==
LOC: DI 03:36
PROVIDERS: PCP Nurse Practitioner; Visit Provider Nurse Practitioner
DX: M54.6 Pain in thoracic spine (principal); M54.59 Other low back pain; R29.898 Other symptoms and signs involving the musculoskeletal system; M51.15 Intervertebral disc disorders with radiculopathy, thoracolumbar region; M51.17 Intervertebral disc disorders with radiculopathy, lumbosacral region; M99.73 Connective tissue and disc stenosis of intervertebral foramina of lumbar region
CPT/HCPCS: 72146; 72148

== ENCOUNTER 2022-04-20 03:53 | Outpatient (CLI) | payer OTHER, SELFPAY ==
[2022-04-20 07:41] LABS: Abs Immature Grans 0.01 10^3/uL (0.0-0.06); Absolute Basophil Count 0.04 10^3/uL (0.0-0.2); Absolute Eosinophil Count 0.07 10^3/uL (0.0-0.7); Absolute Lymphocyte Count 1.59 10^3/uL (1.2-3.4); Absolute Monocyte Count 0.41 10^3/uL (0.1-0.8); Absolute Neutrophil Count 4.09 10^3/uL (1.2-6.7); Basophils % 0.6; Eosinophils % 1.1; HCT 34.9 % (36.0-46.0); HGB 10.5 g/dL (11.2-15.7); Immature Grans % 0.2; Lymphocytes % 25.6; MCH 22.1 pg (27.0-33.0); MCHC 30.1 % (32.0-36.0); MCV 74 fL (80-95); MPV 9.2 fL (8.0-11.0); Monocytes % 6.6; Neutrophils % 65.9; Platelet Count 349 10^3/uL (130-400); RBC 4.75 10^6/uL (3.93-5.22); RDW 17.8 % (11.7-14.6); RDW-SD 47.1 fL; WBC 6.21 10^3/uL (4.4-10.8)
[2022-04-20 08:47] LABS: ALT 20 U/L (14-59); AST 21 U/L (15-37); Albumin 4.2 g/dL (3.4-5.0); Alkaline Phosphatase 81 U/L (46-116); Anion Gap 7.8 mmol/L (3-11); BUN 14 mg/dL (7-18); Bilirubin, Total 0.4 mg/dL (0.2-1.0); CO2 30.2 mmol/L (21.0-32.0); CREATININE 0.9 mg/dL (0.55-1.02); Calcium 9.3 mg/dL (8.5-10.1); Chloride 101 mmol/L (98-107); Estimated GFR 73.19 (mL/min/1.73m2); Glucose 119 mg/dL (74-106); Potassium 3.8 mmol/L (3.5-5.1); Sodium 139 mmol/L (136-145); Vitamin B12 407 pg/mL (193-986)
== END 2022-04-20 03:54 | disposition home or self-care (01) ==
LOC: LBO 03:53
PROVIDERS: PCP Nurse Practitioner; Visit Provider Nurse Practitioner
DX: D64.9 Anemia, unspecified (principal); J45.909 Unspecified asthma, uncomplicated; D51.9 Vitamin B12 deficiency anemia, unspecified; M54.59 Other low back pain; R53.83 Other fatigue
CPT/HCPCS: 36415; 80053; 82607; 85025

== ENCOUNTER 2022-06-16 11:06 | Outpatient (CLI) | payer OTHER, SELFPAY ==
[2022-06-16 10:49] LABS: Abs Immature Grans 0.01 10^3/uL (0.0-0.06); Absolute Basophil Count 0.04 10^3/uL (0.0-0.2); Absolute Eosinophil Count 0.07 10^3/uL (0.0-0.7); Absolute Lymphocyte Count 1.32 10^3/uL (1.2-3.4); Absolute Monocyte Count 0.26 10^3/uL (0.1-0.8); Absolute Neutrophil Count 2.41 10^3/uL (1.2-6.7); Eosinophils % 1.7; HCT 33.5 % (36.0-46.0); HGB 10.3 g/dL (11.2-15.7); Immature Grans % 0.2; Lymphocytes % 32.1; MCH 22.5 pg (27.0-33.0); MCHC 30.7 % (32.0-36.0); MCV 73 fL (80-95); MPV 9.5 fL (8.0-11.0); Monocytes % 6.3; Neutrophils % 58.7; Platelet Count 280 10^3/uL (130-400); RBC 4.57 10^6/uL (3.93-5.22); RDW 17.3 % (11.7-14.6); WBC 4.11 10^3/uL (4.4-10.8)
[2022-06-16 11:07] LABS: Anisocytosis 1+; Diff Comment RBC Morph Reviewed; Hypochromasia 1+; Microcytosis 1+; Polychromasia Present
[2022-06-16 11:08] LABS: Poikilocytes 1+
[2022-06-16 11:19] LABS: Ferritin 8 ng/mL (8-252)
[2022-06-19 09:58] LABS: Haptoglobin 134 mg/dL (32-197)
== END 2022-06-16 11:07 | disposition home or self-care (01) ==
LOC: LBO 11:06
PROVIDERS: PCP Nurse Practitioner; Visit Provider Physician Assistant Medical
DX: Z79.899 Other long term (current) drug therapy; D50.0 Iron deficiency anemia secondary to blood loss (chronic)
CPT/HCPCS: 36415; 82728; 83010; 85025

== ENCOUNTER 2022-11-02 03:58 | Outpatient (CLI) | payer OTHER, SELFPAY ==
[2022-11-02 07:22] LABS: Abs Immature Grans 0.05 10^3/uL (0.0-0.06); Absolute Basophil Count 0.02 10^3/uL (0.0-0.2); Absolute Eosinophil Count 0.01 10^3/uL (0.0-0.7); Absolute Lymphocyte Count 1.18 10^3/uL (1.2-3.4); Absolute Neutrophil Count 5.03 10^3/uL (1.2-6.7); Basophils % 0.3; ESR 34 mm/hr (0-30); Eosinophils % 0.2; HCT 34.8 % (36.0-46.0); HGB 11.3 g/dL (11.2-15.7); Immature Grans % 0.8; Lymphocytes % 18.2; MCH 26.7 pg (27.0-33.0); MCHC 32.5 % (32.0-36.0); MCV 82 fL (80-95); MPV 9.1 fL (8.0-11.0); Monocytes % 3.1; Neutrophils % 77.4; Platelet Count 375 10^3/uL (130-400); RBC 4.24 10^6/uL (3.93-5.22); RDW 15.8 % (11.7-14.6); RDW-SD 47.1 fL; WBC 6.49 10^3/uL (4.4-10.8)
[2022-11-02 09:11] LABS: ALT 34 U/L (14-59); AST 20 U/L (15-37); Albumin 3.7 g/dL (3.4-5.0); Alkaline Phosphatase 91 U/L (46-116); Anion Gap 10.9 mmol/L (3-11); BUN 13 mg/dL (7-18); Bilirubin, Total 0.2 mg/dL (0.2-1.0); C-Reactive Protein 4.91 mg/dL (0.0-0.3); CO2 25.1 mmol/L (21.0-32.0); CREATININE 0.9 mg/dL (0.55-1.02); Calcium 9.3 mg/dL (8.5-10.1); Chloride 103 mmol/L (98-107); Estimated GFR 73.19 (mL/min/1.73m2); Glucose 127 mg/dL (74-106); Potassium 3.9 mmol/L (3.5-5.1); Sodium 139 mmol/L (136-145); Total Protein 7.7 g/dL (6.4-8.2)
[2022-11-02 09:38] LABS: Ferritin 217 ng/mL (8-252)
[2022-11-03 11:37] LABS: Lyme Ab w Rflx to Lyme Confirm Positive (Negative)
[2022-11-03 13:33] LABS: Lyme IgG Ab Positive (Negative); Lyme IgM Ab Positive (Negative)
[2022-11-04 23:45] LABS: Anaplasma phagocytophilum Negative (Negative); B. miyamotoi PCR Negative (Negative); Babesia divergens/MO-1 Negative (Negative); Babesia duncani Negative (Negative); Babesia microti Negative (Negative); Ehrlichia chaffeensis Negative (Negative); Ehrlichia ewingii/canis Negative (Negative); Ehrlichia muris eauclairensis Negative (Negative)
== END 2022-11-02 03:59 | disposition home or self-care (01) ==
LOC: LBO 03:58
PROVIDERS: PCP Nurse Practitioner; Visit Provider Physician Assistant Medical
DX: R21 Rash and other nonspecific skin eruption (principal); W57.XXXA Bitten or stung by nonvenomous insect and other nonvenomous arthropods, initial encounter
CPT/HCPCS: 36415; 80053; 85652; 86617; 87798; 82728; 85025; 86140; 86618

== ENCOUNTER 2023-01-02 07:49 | Outpatient (CLI) | payer OTHER, SELFPAY | END 2023-01-02 07:50 | disposition home or self-care (01) | LOC: DI.KIM 07:50 | PROVIDERS: PCP Nurse Practitioner; Visit Provider Nurse Practitioner | DX: Z01.818 Encounter for other preprocedural examination (principal) | CPT/HCPCS: 93010 ==

== ENCOUNTER → 2023-10-03 02:00 | Outpatient (CLI) | payer OTHER, SELFPAY ==
--- NOTE | 2023-10-03 06:30 | DI.MAMMO_ITS ---
Exam(s) MAMMO SCREENING EXAM: MAMMO SCREENING CLINICAL HISTORY: screening, Z12.39. TECHNIQUE: Bilateral full field digital CC and MLO mammographic images were obtained with 3D tomosyn thesis and utilizing computer aided detection (CAD). COMPARISON: Prior mammograms were reviewed. FINDINGS: There has been no significant change in the appearance and distribution of the fibroglandular tissue. Slight increase in number of benign-appearing microcalcifications in both breasts noted. There are no new spiculated masses nor new malignant appearing microcalcification groups. There is no significant architectural distortion nor skin thickening-retraction. IMPRESSION: Benign findings. No radiographic evidence of malignancy. BI-RADS Category 2 - Benign Findings Breast Density - Category A - Almost entirely fatty Breast density Category C or D implies that the patient has dense breast tissue. Dense breast tissue can make it harder to find cancer on a mammogram. Dense breast tissue is also associated with an incr eased risk of breast cancer. This information about the result of the mammogram report was provided to the patient to raise their awareness. Use this report when you speak with the patient about their risks for breast cancer, which includes their family history. At that time, you may recommend additional screening tests (Ultrasoun d or MRI) as these tests may add significant information. A negative radiographic report should not delay biopsy if a dominant or clinically suspicious mass is present. Up to ten percent of cancers are not identified on mammography. A negative report may reinforce clinical impression. Adenosis and dense breasts may obscure an underlying neoplasm. False positive reports average 6 to 10%. Patient will receive a letter notifying them of these results.
== END ==
PROVIDERS: PCP Nurse Practitioner; Visit Provider Nurse Practitioner
DX: Z12.39 Encounter for other screening for malignant neoplasm of breast (principal)
CPT/HCPCS: 77063; 77067

== ENCOUNTER 2024-06-03 15:52 | Outpatient (REF) | payer OTHER, SELFPAY ==
[2024-06-03 21:21] LABS: Absolute Basophil Count 0.05 10^3/uL (0.0-0.2); Absolute Eosinophil Count 0.04 10^3/uL (0.0-0.7); Absolute Lymphocyte Count 1.19 10^3/uL (1.2-3.4); Absolute Monocyte Count 0.34 10^3/uL (0.1-0.8); Absolute Neutrophil Count 3.04 10^3/uL (1.2-6.7); Basophils % 1.1 %; Eosinophils % 0.9 %; HCT 38.9 % (36.0-46.0); HGB 13.1 g/dL (11.2-15.7); Lymphocytes % 25.5 %; MCH 29.3 pg (27.0-33.0); MCHC 33.7 % (32.0-36.0); MCV 87 fL (80-95); MPV 9.8 fL (8.0-11.0); Monocytes % 7.3 %; Neutrophils % 65.2 %; Platelet Count 268 10^3/uL (130-400); RBC 4.47 10^6/uL (3.93-5.22); RDW 13.1 % (11.7-14.6); RDW-SD 40.9 fL; WBC 4.66 10^3/uL (4.4-10.8)
[2024-06-03 21:33] LABS: ALT 66 U/L (14-59); AST 30 U/L (15-37); Alkaline Phosphatase 65 U/L (46-116); Anion Gap 8.2 mmol/L (3-11); BUN 12 mg/dL (7-18); Bilirubin, Total 0.67 mg/dL (0.2-1.0); CO2 27.8 mmol/L (21.0-32.0); CREATININE 0.8 mg/dL (0.55-1.02); Calcium 9.3 mg/dL (8.5-10.1); Chloride 106 mmol/L (98-107); Estimated GFR 83.26 (mL/min/1.73m2); Glucose 90 mg/dL (74-106); Magnesium 1.9 mg/dL (1.8-2.4); PHOSPHORUS 3.8 mg/dL (2.6-4.7); Potassium 4.3 mmol/L (3.5-5.1); Sodium 142 mmol/L (136-145); Total Protein 6.7 g/dL (6.4-8.2)
== END 2024-06-03 15:53 | disposition home or self-care (01) ==
LOC: LBN 15:52
PROVIDERS: PCP Nurse Practitioner; Visit Provider Nurse Practitioner
DX: R79.9 Abnormal finding of blood chemistry, unspecified (principal); I49.9 Cardiac arrhythmia, unspecified; Z78.9 Other specified health status
CPT/HCPCS: 80053; 83735; 84100; 85025

== ENCOUNTER 2024-07-17 00:40 | Outpatient (CLI) | payer OTHER, SELFPAY ==
--- NOTE | 2024-07-17 07:30 | DI.US_ITS ---
APPROVED REPORT EXAM: Comprehensive 2D, Doppler, and color-flow Echocardiogram Patient Location: Out-Patient Supervisor Pre Wave: Rio Page RDCS (AE) Indications: Heart failure with mildly reduced EF Other Information Study Quality: Adequate Conclusion Normal left ventricular wall thickness and chamber size. Ejection fraction is 55 to 60%. There are no segmental wall motion abnormalities Normal right ventricular size and function Both atria are normal in size There are no structural valvular abnormalities Mild mitral and tricuspid regurgitation Estimated right ventricular systolic pressure is 28 mmHg Wall motion Left Ventricle The left ventricle is normal size. Left ventricular systolic function is normal. The left ventricular ejection fraction is within the normal range. There is normal left ventricular wall thickness. There is normal LV segmental wall motion. The left ventricular diastolic function is normal. There is no v entricular septal defect visualized. LVEF is 55-60% Right Ventricle The right ventricle is normal size. The right ventricular systolic function is normal. Atria The left atrium size is normal. The right atrium size is normal. The interatrial septum is intact wit h no evidence for an atrial septal defect. Aortic Valve The aortic valve is normal in structure. Aortic valve is trileaflet. There is no aortic valvular sten osis. No aortic regurgitation is present. Mitral Valve The mitral valve is normal in structure. No evidence of mitral valve stenosis. Mild mitral regurgitat ion. Tricuspid Valve The tricuspid valve is normal in structure. There is no tricuspid valve stenosis. Mild tricuspid regu rgitation. The RVSP is 28 mmHg. Pulmonic Valve The pulmonary valve is normal in structure. There is no pulmonic valvular stenosis. Trace to mild pul rod regurgitation. Great Vessels The aortic root is normal in size. The ascending aorta is normal in size. Aortic arch is normal in ca liber. IVC is normal in size and collapses >50% with inspiration. Pericardium There is no pericardial effusion. 2D Dimensions IVSD d PLAX 0.90 cm F: 0.6-1.0 Ao Root d 2.58 cm F: 2.7 - 3.3 LVPW d PLAX 0.92 cm F: 0.6 - 1.0 Ao Asc Diam d 2.89 cm F: 2.3 - 3.1 LVID d PLAX 5.22 cm F: 3.8 - 5.2 LVDs 3.76 cm F: 2.2 - 3.5 LV EF Teichholz 53.9 % FS 28.04 % LV EDV (Teich) 130.9 mL LV ESV (Teich) 60.4 mL Stroke Vol Index (Teich) 41.00 M-Mode TAPSE 1.98 cm (M/F) >1.7 Auto EF LV EDV A4C 63.9 mL LV EDV A2C 45.0 mL LV EDV BP 54.3 mL LV ESV A4C 29.9 mL LV ESV A2C 20.5 mL LV ESV BP 24.7 mL LVEF(%) A4C 53.2 % LVEF(%) A2C 54.4 % LVEF(%) BP 54.5 % LV SV A4C 34.0 ml LV SV A2C 24.5 ml LV SV BP 29.6 ml LV CO A4C 2.9 L/min LV CO A2C 2.0 L/min LV CO BP 2.4 L/min HR A4C 83.92 BPM HR A2C 82.38 BPM LV EDV Index (BP) LA Volume LA Length A4C 4.3 cm LA Length A2C 4.3 cm LA Area A4C s 7.90 cm2 LA Area A2C s 6.47 cm2 LA Vol A4C A-L 12.40 mL LA Vol A2C A-L 8.27 mL LA Vol Biplane A-L 10.1 mL LA Vol/BSA A4C A-L LA Vol/BSA A2C A-L LA Vol/BSA BP A-L 5.9 mL/m2 LA Vol A4C MOD 12.1 mL LA Vol A2C MOD 8.0 mL LA Vol BP MOD 9.8 mL RA Volume RA Area A4C 7.1 cm2 RA ESV A4C (A-L) 11.5mL RA Vol/BSA A4C A-L RA Length A4C 3.7 cm RA ESV A4C (MOD) 11.6mL LV Diastology MV E' medial 0.069 (>0.07 m/s) MV E Vmax 0.83 (0.4-1.3 m/s) MV E/E' MED 12.01 (<14) MV A Vmax 0.90 (0.4-1.3 m/s) MV E' lateral 0.081 (>0.1 m/s) E/A Ratio 0.9 MV E/E' LAT 10.25 (<14) MV E' Average 0.075 m/s MV E/E'(average) 11.06 Aortic Valve AoV Vmax 1.31 m/s LVOT Vmax 0.87 m/s AoV Peak Grad 6.9 mmHg LVOT Peak Grad 3.0 mmHg AoV Area (Vmax) 1.74 cm2 LVOT VTI 0.154 m AoV VTI 0.254 m LVOT Mean Grad 1.3 mmHg AoV Mean Terence. 0.87 m/s LVOT SV 40.62 mL AoV Mean Grad 3.6 mmHg LVOT Diam s 1.80 cm AoV Area (VTI) 1.60 cm2 AV Regurg Peak Gr. 6.89 mmHg Velocity Ratio 0.66 Mitral Valve MV DT 174 (160-240 msec) Pulmonary Valve PV Vmax 0.95 (0.5-1.5 m/s) RVOT Vmax 0.50 m/s PV Peak Grad 3.6 mmHg RVOT Peak Gr. 1.0 mmHg PV Mean Terence 0.73 m/s RVOT VTI 0.122 m PV Mean Grad 2.3 mmHg RVOT Mean Gr. 0.5 mmHg Tricuspid Valve RA Pressure 3.00 mmHg TR Vmax 2.52 m/s TV S' 0.10 m/s TR Peak Grad 25.4 mmHg RVSP (TR) 28.4 mmHg
== END 2024-07-17 01:00 ==
LOC: DI 00:40
PROVIDERS: PCP Nurse Practitioner; Visit Provider Internal Medicine Cardiovascular Disease
DX: I50.22 Chronic systolic (congestive) heart failure (principal); I34.0 Nonrheumatic mitral (valve) insufficiency
CPT/HCPCS: 93306